=== PATIENT | female | born 1985 | race Caucasian/White ===

== ENCOUNTER 2016-12-01 18:41 | Emergency (ER) | payer MEDICARE, MEDICAID ==
[2016-12-01 19:13] VITALS: BP 130/86
--- NOTE | 2016-12-01 19:57 | EDM.PDOC ---
ED HPI GENERAL MEDICAL PROBLEM - General Chief Complaint: ENT Problem Stated Complaint: POSS EAR INFECTION Time Seen by Provider: 12/01/16 19:30 Source of Information: Reports: Patient, Family (Father), RN Notes Reviewed History Limitations: Reports: No Limitations - History of Present Illness INITIAL COMMENTS - FREE TEXT/NARRATIVE: The patient states that she had drainage from her left ear that began about 10 days ago, lasting for about 2 days. When that stopped, about 8 days ago, she developed left ear pain, decreased hearing, and possible tinnitus. She has not had a fever. No prior similar symptoms. The patient denies having a sore throat. No recent fever. The patient's PCP is Dr. Marie. Left Ear Pain Score (Numeric/FACES): 7 - Related Data Allergies Allergy/AdvReac Type Severity Reaction Status Date / Time acetaminophen Allergy Cannot Verified 12/01/16 19:03 [From Darvocet-N] Remember nitrofurantoin Allergy Cannot Verified 12/01/16 19:03 [From Macrobid] Remember nitrofurantoin Allergy Cannot Verified 12/01/16 19:03 macrocrystalline Remember [From Macrobid] propoxyphene napsylate Allergy Cannot Verified 12/01/16 19:03 [From Darvocet-N] Remember Sulfa (Sulfonamide Allergy Cannot Verified 12/01/16 19:03 Antibiotics) Remember Home Meds: Home Meds Labetalol [Normodyne] 200 mg PO TID 02/17/14 [History] Calcium Carbonate [Calcium] 600 mg PO DAILY 12/01/16 [History] LORazepam [Ativan] 1 mg PO BID 12/01/16 [History] Lisinopril 20 mg PO DAILY 12/01/16 [History] Sertraline [Zoloft] 100 mg PO DAILY 12/01/16 [History] Sevelamer Carbonate [Renvela] 1,600 mg PO TIDMEALS 12/01/16 [History] Sodium Bicarbonate 650 mg PO BID 12/01/16 [History] Past Medical History HEENT History: Reports: Impaired Vision Cardiovascular History: Reports: Hypertension Gastrointestinal History: Reports: GERD Genitourinary History: Reports: Dialysis, Renal Calculus, Renal Disease 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: Psychiatric History: Reports: Addiction, Anxiety, Depression - Past Surgical History HEENT Surgical History: Reports: Adenoidectomy, Myringotomy w Tube(s) (bilateral ), Tonsillectomy Cardiovascular Surgical History: Reports: Other (See Below) (LUE AVF) Female Surgical History: Reports: Section (x 1), Hysterectomy, Salpingo-Oophorectomy Musculoskeletal Surgical History: Reports: Other (See Below) (Right thumb trigger finger release) Social & Family History - Family History Cardiac: Reports: High Cholesterol, Hypertension : Reports: Dialysis Musculoskeletal: Reports: Fibromyalgia Neurological: Reports: Cerebral Aneurysms - Tobacco Use Smoking Status *Q: Current Every Day Smoker Years of Tobacco use: 15 Packs/Tins Daily: 0.5 Packs/Tins Daily Comment: Down from 1 ppd Second Hand Smoke Exposure: Yes - Caffeine Use Caffeine Use: Reports: Coffee, Soda - Alcohol Use Alcohol Use History: Yes Days Per Week of Alcohol Use: 0 Alcohol Use Frequency: Socially - Recreational Drug Use Recreational Drug Use: Yes Drug Use in Last 12 Months: Yes Recreational Drug Type: Reports: Marijuana/Hashish Recreational Drug Use Frequency: Daily - Living Situation & Occupation Living situation: Reports: Single, with Family (Father) Occupation: Unemployed ED ROS ENT - Review of Systems Review Of Systems: See Below Constitutional: Reports: No Symptoms HEENT: Reports: No Symptoms, Ear Discharge (as per the HPI), Ear Pain (as per the HPI) Respiratory: Reports: No Symptoms Cardiovascular: Reports: No Symptoms Endocrine: Reports: No Symptoms GI/Abdominal: Reports: No Symptoms : Reports: No Symptoms Musculoskeletal: Reports: No Symptoms Skin: Reports: No Symptoms Neurological: Reports: No Symptoms Psychiatric: Reports: No Symptoms Hematologic/Lymphatic: Reports: No Symptoms Immunologic: Reports: No Symptoms ED EXAM, ENT - Physical Exam Exam: See Below Exam Limited By: No Limitations General Appearance: Alert, WD/WN, No Apparent Distress Eye Exam: Bilateral Eye: Normal Inspection Ears: Normal External Exam, Normal Canal, Hearing Grossly Normal, Normal TMs, Auricular Tenderness (left), Mastoid Tenderness (left). No: Auricular Erythema , Auricular Ecchymosis, Mastoid Swelling, Canal Swelling, TM Bulging Nose: Normal Inspection, Normal Mucousa, No Blood Mouth/Throat: Normal Inspection, Normal Gums, Normal Lips, Normal Oropharynx, Normal Teeth Head: Atraumatic, Normocephalic Neck: Normal Inspection, Supple, Non-Tender, Full Range of Motion. No: Lymphadenopathy (L), Lymphadenopathy (R) Psychiatric: Normal Affect Skin: Warm, Dry, Intact, Normal Color, No Rash Course - Vital Signs Last Recorded V/S: Last Vital Signs Temp 36.6 C 12/01/16 19:09 Pulse 101 H 12/01/16 19:09 Resp 18 12/01/16 19:09 BP 130/86 12/01/16 19:09 Pulse Ox 97 12/01/16 19:09 - Re-Assessments/Exams Free Text/Narrative Re-Assessment/Exam: 12/01/16 19:51 The patient is complaining of left ear pain for the past 8 days, with drainage for 2 days prior to that, along with decreased hearing and possible tenderness. On examination, she stated that she had significant pain with manipulation of her auricle, however, I do not see any erythema or suggestion of an infection either to the external ear or to the left ear canal. Further, the patient denies having a sore throat, so this does not appear to be a referred pain. I don't see an indication for antibiotics. I will refer the patient to ENT. Departure - Departure Time of Disposition: 19:52 Disposition: Home, Self-Care 01 Condition: Good Clinical Impression: Left ear pain - Discharge Information Referrals: Aidan Marie MD [Primary Care Provider] - Vernon Kolb MD [Ordering Only Provider] - Forms: ED Department Discharge Additional Instructions: You were seen in the emergency room for left ear pain for the past 8 days, with drainage for 2 days prior to that. On examination, no infection or other abnormality was found. The cause of your left ear pain is not known. Follow-up with the ENT Dr. Vernon Kolb at the next available appointment. In the meantime, take [id number] Tylenol or ibuprofen as needed for discomfort. DO NOT instill any medicines, oils, or zeke in either ear unless specifically instructed to do so by Dr. Kolb.. If any other problems, please do not hesitate to return to the ER.
== END 2016-12-01 20:23 | disposition home or self-care (01) ==
LOC: JD.ED 18:41
DX: H92.02 Otalgia, left ear (principal); I10 Essential (primary) hypertension; K21.9 Gastro-esophageal reflux disease without esophagitis; F32.9 Major depressive disorder, single episode, unspecified; F17.210 Nicotine dependence, cigarettes, uncomplicated; Z87.442 Personal history of urinary calculi; Z88.2 Allergy status to sulfonamides; Z99.2 Dependence on renal dialysis; Z96.22 Myringotomy tube(s) status; Z98.890 Other specified postprocedural states; Z90.710 Acquired absence of both cervix and uterus; Z79.899 Other long term (current) drug therapy; Z88.6 Allergy status to analgesic agent; Z88.8 Allergy status to other drugs, medicaments and biological substances
CPT/HCPCS: 99282

== ENCOUNTER 2018-04-04 08:55 | Emergency (ER) | payer MEDICAID, MEDICARE ==
[2018-04-04 09:13] VITALS: BP 173/93
--- NOTE | 2018-04-04 10:26 | EDM.PDOC ---
ED HPI GENERAL MEDICAL PROBLEM - General Chief Complaint: Chest Pain Stated Complaint: CHEST PAIN Time Seen by Provider: 04/04/18 10:10 Source of Information: Reports: Patient, RN Notes Reviewed History Limitations: Reports: No Limitations - History of Present Illness INITIAL COMMENTS - FREE TEXT/NARRATIVE: The patient states that she developed left upper chest pain yesterday, and that it began radiating to her lower left posterior ribs around 01:00 this morning. She states that it feels like a muscle cramp or spasm. She feels more comfortable lying in the left decubitus position, worse lying in the right decubitus position or with breathing. She states that she had a cough yesterday , slightly productive of sputum. No recent fever. No associated dyspnea. No nausea. No prior similar symptoms. The patient states that she saw her PCP, Dr. Marie, this morning while she was receiving dialysis, and that he recommended that she go to the ED for evaluation. The patient states that she took some Tylenol around 06:45 this morning. Left Chest Pain Score (Numeric/FACES): 9 - Related Data Allergies Allergy/AdvReac Type Severity Reaction Status Date / Time acetaminophen Allergy Cannot Verified 04/04/18 09:00 [From Darvocet-N] Remember nitrofurantoin Allergy Cannot Verified 04/04/18 09:00 [From Macrobid] Remember nitrofurantoin Allergy Cannot Verified 04/04/18 09:00 macrocrystalline Remember [From Macrobid] propoxyphene napsylate Allergy Cannot Verified 04/04/18 09:00 [From Darvocet-N] Remember Sulfa (Sulfonamide Allergy Cannot Verified 04/04/18 09:00 Antibiotics) Remember Home Meds: Home Meds Labetalol [Normodyne] 200 mg PO TID 02/17/14 [History] Calcium Carbonate [Calcium] 600 mg PO DAILY 12/01/16 [History] LORazepam [Ativan] 1 mg PO ASDIRECTED 12/01/16 [History] Lisinopril 20 mg PO DAILY 12/01/16 [History] Sertraline [Zoloft] 100 mg PO DAILY 12/01/16 [History] Sevelamer Carbonate [Renvela] 1,600 mg PO TIDMEALS 12/01/16 [History] Past Medical History HEENT History: Reports: Impaired Vision Cardiovascular History: Reports: Hypertension Gastrointestinal History: Reports: GERD Genitourinary History: Reports: Dialysis (Q M, W, F), Renal Calculus, Renal Disease 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: Psychiatric History: Reports: Addiction (methamphetamine), Anxiety, Depression - Past Surgical History HEENT Surgical History: Reports: Adenoidectomy, Myringotomy w Tube(s) (bilateral ), Tonsillectomy Cardiovascular Surgical History: Reports: Vascular Surgery (Left upper extremity AV fistula) Female Surgical History: Reports: Section (x 1), Hysterectomy, Salpingo-Oophorectomy Musculoskeletal Surgical History: Reports: Other (See Below) (Right thumb trigger finger release) Social & Family History - Family History Cardiac: Reports: High Cholesterol, Hypertension : Reports: Dialysis Musculoskeletal: Reports: Fibromyalgia Neurological: Reports: Cerebral Aneurysms - Tobacco Use Smoking Status *Q: Current Every Day Smoker Years of Tobacco use: 18 Packs/Tins Daily: 0.5 Packs/Tins Daily Comment: Down from 1 ppd - Caffeine Use Caffeine Use: Reports: Coffee, Soda - Alcohol Use Alcohol Use History: No Date/Time of Last Drink Comment: Stopped drinking 2015 - Recreational Drug Use Recreational Drug Use: Yes Drug Use in Last 12 Months: Yes Recreational Drug Type: Reports: Marijuana/Hashish (smokes occasionally), Methamphetamine (last smoked February 2018), Other (see below) (opioids - last used in 2008) - Living Situation & Occupation Living situation: Reports: Single, with Family (Father) Occupation: Unemployed ED ROS GENERAL - Review of Systems Review Of Systems: ROS reveals no pertinent complaints other than HPI. ED EXAM, GENERAL - Physical Exam Exam: See Below Exam Limited By: No Limitations General Appearance: Alert, WD/WN, No Apparent Distress Eye Exam: Bilateral Eye: EOMI, Normal Inspection Ears: Normal External Exam, Hearing Grossly Normal Nose: Normal Inspection Throat/Mouth: Normal Inspection, Normal Lips, Normal Voice, No Airway Compromise Head: Atraumatic, Normocephalic Neck: Normal Inspection, Full Range of Motion Respiratory/Chest: No Respiratory Distress, Lungs Clear, Normal Breath Sounds, No Accessory Muscle Use, Chest Non-Tender (including the left upper chest) Cardiovascular: Normal Peripheral Pulses, Regular Rate, Rhythm, No Gallop, No JVD, No Murmur, No Rub Peripheral Pulses: 4+: Radial (L), Radial (R) GI/Abdominal: Normal Bowel Sounds, Soft, Non-Tender, No Organomegaly, No Distention, No Abnormal Bruit, No Mass (Female) Exam: Deferred Rectal (Female) Exam: Deferred Back Exam: Normal Inspection, Full Range of Motion, NT Extremities: Normal Inspection, Normal Range of Motion, No Pedal Edema, Normal Capillary Refill Neurological: Alert, Oriented, Normal Cognition, No Motor/Sensory Deficits Psychiatric: Normal Affect Skin Exam: Warm, Dry EKG INTERPRETATION EKG Date: 04/04/18 Time: 09:04 Rhythm: NSR Rate (Beats/Min): 90 [place]: Normal P-Wave: Enlarged (LAE) QRS: Normal ST-T: Normal QT: Prolonged (QTc 484 ms) Comparison: NA - No Prior EKG Course - Vital Signs Last Recorded V/S: Last Vital Signs Temp 36.3 C 04/04/18 09:12 Pulse 85 04/04/18 09:12 Resp 14 04/04/18 09:12 BP 173/93 H 04/04/18 09:12 Pulse Ox 99 04/04/18 09:12 - Orders/Labs/Meds Labs: Laboratory Tests 04/04/18 04/04/18 Range/Units 10:40 10:40 WBC 10.95 H (3.98-10.04) K/mm3 RBC 3.26 L (3.98-5.22) M/mm3 Hgb 10.6 L (11.2-15.7) gm/L Hct 33.2 L (34.1-44.9) % MCV 101.8 H (79.4-94.8) fl MCH 32.5 H (25.6-32.2) pg MCHC 31.9 L (32.2-35.5) g/dl RDW Std Deviation 51.4 H (36.4-46.3) fL Plt Count 210 (182-369) K/mm3 MPV 9.8 (9.4-12.3) fl Neutrophils % (Manual) 90 H (40-60) % Band Neutrophils % 0 (0-10) % Lymphocytes % (Manual) 7 L (20-40) % Atypical Lymphs % 0 % Monocytes % (Manual) 1 L (2-10) % Eosinophils % (Manual) 2 (0.7-5.8) % Basophils % (Manual) 0 L (0.1-1.2) Platelet Estimate Adequate RBC Morph Comment Normal Sodium 138 (136-145) mEq/L Potassium 4.3 (3.5-5.1) mEq/L Chloride 99 (98-107) mEq/L Carbon Dioxide 31 (21-32) mEq/L Anion Gap 12.3 (5-15) BUN 25 H (7-18) mg/dL Creatinine 6.0 H (0.55-1.02) mg/dL Est Cr Clr Drug Dosing 11.41 mL/min Estimated GFR (MDRD) 8 (>60) mL/min BUN/Creatinine Ratio 4.2 L (14-18) Glucose 92 (74-106) mg/dL Calcium 8.2 L (8.5-10.1) mg/dL Total Bilirubin 0.5 (0.2-1.0) mg/dL AST 13 L (15-37) U/L ALT 20 (14-59) U/L Alkaline Phosphatase 150 H (46-116) U/L Total Protein 7.2 (6.4-8.2) g/dl Albumin 3.6 (3.4-5.0) g/dl Globulin 3.6 gm/dL Albumin/Globulin Ratio 1.0 (1-2) - Re-Assessments/Exams Free Text/Narrative Re-Assessment/Exam: 04/04/18 10:[address] was [address] Marie regarding a different patient earlier, and he mentioned that he was sending this patient to the ED. He mentioned that he was concerned that she might have pneumonia. Based on my history and physical examination, I am less concerned about pneumonia, as she has normal breath sounds, is afebrile, and saturating 99% on room air, and more concerned about a possible PE. I have ordered a chest x-ray and some blood work, however, I cannot check a D-dimer, as the patient is on dialysis, so her D-dimer will be uninterpretable. I will wait to see what the chest x-ray shows before ordering a CT angiogram of the chest. 04/04/18 11:27 Two-view chest x-ray is read by Dr. Padilla as: 1. Findings which are felt compatible with mild bronchitis. Other incidental findings. 04/04/18 11:37 Test results discussed with the patient. While Dr. Padilla saw some chest radiograph findings consistent with bronchitis, they are subtle, and, clinically , the patient does not have bronchitis. While she has been coughing, her cough is quite infrequent, indeed, she did not cough once during any of my interactions with her. I suspect that the patient may have a viral URI with an occasional cough, and that with that cough, she has an intercostal muscle spasm that developed in her posterior left ribs. I explained, however, that I cannot entirely rule out PE, therefore, despite her renal failure, I had to advise for a CT angiogram of the chest to evaluate for a PE. Of note, the patient's renal failure is felt to be permanent, without chance of recovery, with the eventual hope of a kidney transplant. Iodinated contrast is therefore not contraindicated. Nevertheless, the patient felt that the likelihood of her symptoms being due to a PE were very small, and she declined the CT scan. She stated that she would prefer to go home. Departure - Departure Time of Disposition: 11:40 Disposition: Home, Self-Care 01 Condition: Good Clinical Impression: Viral URI with cough, Musculoskeletal chest pain - Discharge Information *PRESCRIPTION DRUG MONITORING PROGRAM REVIEWED*: Not Applicable *COPY OF PRESCRIPTION DRUG MONITORING REPORT IN PATIENT DEAN: Not Applicable Instructions: Upper Respiratory Infection, Adult, [id number], Chest Wall Pain Referrals: Aidan Marie MD [Primary Care Provider] - Forms: ED Department Discharge Additional Instructions: You were seen in the emergency room for left-sided chest pain and left back rib pain, associated with a cough. Workup in the ER included blood work, 2 sets of blood cultures, and chest x-ray. Your chest x-ray had some findings consistent with bronchitis, however, clinically, you do not have bronchitis. You do not have pneumonia. You do not have fluid in your left chest, and he did not have a collapsed lung. Clinically , you are most likely suffering from a viral URI with cough, also known as a common cold. As explained, there is a possibility that your symptoms could be due to a blood clot in your lungs. A CT scan of your chest to evaluate for a blood clot was offered, but declined. We recommend that you continue to take your usual medicines as prescribed. You may continue to go to hemodialysis every Wednesday, Wednesday, and Glenn. If any other problems, please do not hesitate to return to the ER.
--- NOTE | 2018-04-04 11:22 | CR ---
Chest: Two views of the chest were obtained. Comparison: Previous chest x-ray of 11/04/13. Heart size and mediastinum are within normal limits. Lung markings are mildly increased which is felt compatible with mild bronchitis. No pneumonia is identified. Scoliosis is noted within the spine. Impression: 1. Findings which are felt compatible with mild bronchitis. Other incidental findings. Diagnostic code #3
== END 2018-04-04 12:00 | disposition home or self-care (01) ==
LOC: JD.ED 08:55
DX: J06.9 Acute upper respiratory infection, unspecified (principal); R07.89 Other chest pain; I10 Essential (primary) hypertension; F17.210 Nicotine dependence, cigarettes, uncomplicated; Z88.6 Allergy status to analgesic agent; Z88.1 Allergy status to other antibiotic agents; Z79.899 Other long term (current) drug therapy
CPT/HCPCS: 36415; 71046; 71046-26; 80053; 85007; 85027; 87040; 99285

== ENCOUNTER 2018-09-05 01:24 | Emergency (ER) | payer MEDICARE, OTHER ==
[2018-09-05] MEDS ORDERED: Furosemide 40 MG/4 ML VIAL IVPUSH ONE (01:30)
[2018-09-05] MEDS ORDERED: Furosemide 40 MG/4 ML VIAL ONE (01:31)
[2018-09-05] MEDS ORDERED: LORazepam 2 MG/ML SDV IVPUSH STA ×2 (01:32→02:49)
[2018-09-05] MEDS ORDERED: Furosemide 20 MG/2 ML VIAL ONE (01:32)
--- NOTE | 2018-09-05 01:43 | EDM.PDOC ---
ED HPI GENERAL MEDICAL PROBLEM - General Chief Complaint: Respiratory Problem Stated Complaint: [facility] Time Seen by Provider: 09/05/18 01:26 Source of Information: Reports: Patient History Limitations: Reports: Physical Impairment (Too tachypneic to provide a history) - History of Present Illness INITIAL COMMENTS - FREE TEXT/NARRATIVE: The patient is brought to the ED by EMS with report of shortness of breath, however, it is unclear at this time how long this has been going on. Apparently the patient's family called the paramedics. The patient has end-stage renal disease, ordinarily on hemodialysis every Wednesday, Wednesday, and Wednesday, however , her last hemodialysis, for reasons unclear, was this past , 2018. The patient states that she did not take her usual blood pressure medications yesterday (09/04/2018), and that she smoked some marijuana. She presents in some respiratory distress, stating that she can't breathe. She is tachycardic and tachypneic, and on examination, she is cool and diaphoretic. She has a known history of methamphetamine abuse, although states that she has not used any drugs, other than marijuana, recently. The patient's PCP is Dr. Aidan Marie. 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 Marie orders her dialysis. - Related Data Allergies Allergy/AdvReac Type Severity Reaction Status Date / Time acetaminophen Allergy Cannot Verified 04/04/18 09:00 [From Darvocet-N] Remember nitrofurantoin Allergy Cannot Verified 04/04/18 09:00 [From Macrobid] Remember nitrofurantoin Allergy Cannot Verified 04/04/18 09:00 macrocrystalline Remember [From Macrobid] propoxyphene napsylate Allergy Cannot Verified 04/04/18 09:00 [From Darvocet-N] Remember Sulfa (Sulfonamide Allergy Cannot Verified 04/04/18 09:00 Antibiotics) Remember Home Meds: Home Meds Labetalol [Normodyne] 200 mg PO TID 02/17/14 [History] Calcium Carbonate [Calcium] 600 mg PO DAILY 12/01/16 [History] LORazepam [Ativan] 1 mg PO ASDIRECTED 12/01/16 [History] Lisinopril 20 mg PO DAILY 12/01/16 [History] Sertraline [Zoloft] 100 mg PO DAILY 12/01/16 [History] Sevelamer Carbonate [Renvela] 1,600 mg PO TIDMEALS 12/01/16 [History] Past Medical History HEENT History: Reports: Impaired Vision Cardiovascular History: Reports: Hypertension Gastrointestinal History: Reports: GERD Genitourinary History: Reports: Dialysis (Q M, W, F), Renal Calculus 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: Psychiatric History: Reports: Addiction (methamphetamine), Anxiety, Depression - Past Surgical History HEENT Surgical History: Reports: Adenoidectomy, Myringotomy w Tube(s) (bilateral ), Tonsillectomy Cardiovascular Surgical History: Reports: Vascular Surgery (left upper extremity AV fistula) Female Surgical History: Reports: Section (x 1), Hysterectomy ( complete), Salpingo-Oophorectomy (bilateral) Musculoskeletal Surgical History: Reports: Other (See Below) (Right thumb trigger finger release) Social & Family History - Family History Cardiac: Reports: High Cholesterol, Hypertension : Reports: Dialysis Musculoskeletal: Reports: Fibromyalgia Neurological: Reports: Cerebral Aneurysms - Tobacco Use Smoking Status *Q: Current Every Day Smoker Years of Tobacco use: 18 Packs/Tins Daily: 0.5 Packs/Tins Daily Comment: Down from 1 ppd - Caffeine Use Caffeine Use: Reports: Coffee, Soda - Alcohol Use Alcohol Use History: No - Recreational Drug Use Recreational Drug Use: Yes Drug Use in Last 12 Months: Yes Recreational Drug Type: Reports: Marijuana/Hashish (smokes 3x/week), Methamphetamine (last smoked early August 2017) - Living Situation & Occupation Living situation: Reports: Single, with Family (Father) Occupation: Unemployed ED ROS GENERAL - Review of Systems Review Of Systems: ROS reveals no pertinent complaints other than HPI. ED EXAM, GENERAL - Physical Exam Exam: See Below Exam Limited By: Physical Impairment (respiratory distress) General Appearance: Alert, WD/WN, Anxious Eye Exam: Bilateral Eye: EOMI, Normal Inspection Ears: Normal External Exam, Hearing Grossly Normal Nose: Normal Inspection Throat/Mouth: Normal Inspection, Normal Lips, Normal Voice, No Airway Compromise Head: Atraumatic, Normocephalic Neck: Normal Inspection, Full Range of Motion Respiratory/Chest: No Accessory Muscle Use, Respiratory Distress (tachypneic), Crackles (throughout lungfields). No: Wheezing, Accessory Muscle Use, Retractions, Prolonged Expiration Cardiovascular: Normal Peripheral Pulses, No Edema, No Gallop, No JVD, No Murmur , No Rub, Tachycardia (regular), Other (Excellent LUE AVF thrill) Peripheral Pulses: 4+: Radial (L), Radial (R) GI/Abdominal: Normal Bowel Sounds, Soft, Non-Tender, No Organomegaly, No Distention, No Abnormal Bruit, No Mass (Female) Exam: Deferred Rectal (Female) Exam: Deferred Back Exam: Normal Inspection, Full Range of Motion, NT Extremities: Normal Inspection, Normal Range of Motion, No Pedal Edema, Normal Capillary Refill Neurological: Alert, Oriented, Normal Cognition, No Motor/Sensory Deficits Psychiatric: Anxious Skin Exam: Intact, Normal Color, No Rash, Cool, Diaphoretic EKG INTERPRETATION EKG Date: 09/05/18 Time: 01:28 Rhythm: Other (Sinus tachycardia) Rate (Beats/Min): 145 Filer: Normal P-Wave: Present QRS: Normal ST-T: Normal QT: Prolonged (QTc 595 ms) Comparison: Change From Previous EKG (QTc was 484 ms on 04/04/2018) Course - Vital Signs Last Recorded V/S: Last Vital Signs Temp 36.1 C 09/05/18 03:50 Pulse 135 H 09/05/18 03:50 Resp 24 H 09/05/18 03:50 BP 259/120 H 09/05/18 03:50 Pulse Ox 98 09/05/18 03:50 - Orders/Labs/Meds Orders: Active Orders 24 hr Category Date Time Status BIPAP Adult [RT BiPAP/CPAP] [RC] ASDIRECTED Care 09/05/18 01:36 Active EKG Documentation Completion [RC] STAT Care 09/05/18 01:29 Active Ang Chest [CT] Stat Exams 09/05/18 03:05 Taken Chest 1V Frontal [CR] Stat Exams 09/05/18 01:29 Taken CULTURE BLOOD [BC] Stat Lab 09/05/18 01:50 Received Azithromycin [Zithromax] 500 mg Med 09/05/18 03:57 Active Sodium Chloride 0.9% [Normal Saline] 250 ml IV ONETIME cefTRIAXone [Rocephin] 1 gm Med 09/05/18 03:57 Active Sodium Chloride 0.9% [Normal Saline] 100 ml IV ONETIME Blood Culture x2 Reflex Set [OM.PC] Stat Oth 09/05/18 01:29 Ordered Medication Orders Azithromycin 500 mg/ Sodium (Chloride) 250 mls @ 250 mls/hr IV ONETIME ONE Stop: 09/05/18 04:56 Ceftriaxone Sodium 1 gm/ (Sodium Chloride) 100 mls @ 200 mls/hr IV ONETIME ONE Stop: 09/05/18 04:26 Last Admin: 09/05/18 04:04 Dose: 200 mls/hr Labs: Laboratory Tests 09/05/18 09/05/18 09/05/18 Range/Units 01:31 01:31 01:31 WBC 18.88 H (3.98-10.04) K/mm3 RBC 2.70 L (3.98-5.22) M/mm3 Hgb 8.8 L D (11.2-15.7) gm/L Hct 27.5 L (34.1-44.9) % MCV 101.9 H (79.4-94.8) fl MCH 32.6 H (25.6-32.2) pg MCHC 32.0 L (32.2-35.5) g/dl RDW Std Deviation 45.3 (36.4-46.3) fL Plt Count 375 H D (182-369) K/mm3 MPV 9.8 (9.4-12.3) fl Neutrophils % (Manual) 52 (40-60) % Band Neutrophils % 0 (0-10) % Lymphocytes % (Manual) 34 (20-40) % Atypical Lymphs % 0 % Monocytes % (Manual) 9 (2-10) % Eosinophils % (Manual) 3 (0.7-5.8) % Basophils % (Manual) 2 H (0.1-1.2) Hypersegmented Neuts Few Toxic Granulation 1+ slight Platelet Estimate Increased Plt Morphology Comment Normal Hypochromasia 1+ slight Macrocytosis 2+ moderate Ovalocytes 2+ moderate RBC Morph Comment Not Reportable Puncture Site ABG pH (7.35-7.45) ABG pCO2 (35.0-45.0) mmHg ABG pO2 (80.0-100.0) mmHg ABG HCO3 (22.0-26.0) meq/L ABG O2 Saturation (96.0-97.0) % ABG Base Excess (-2-2.0) A-a Gradient mmHg O2 Delivery Device Oxygen Flow Rate FiO2 (21.00-100.00) % Sodium 137 (136-145) mEq/L Potassium 5.1 (3.5-5.1) mEq/L Chloride 100 (98-107) mEq/L Carbon Dioxide 20 L D (21-32) mEq/L Anion Gap 22.1 H (5-15) BUN 47 H (7-18) mg/dL Creatinine 11.0 H D (0.55-1.02) mg/dL Est Cr Clr Drug Dosing 6.22 mL/min Estimated GFR (MDRD) 4 (>60) mL/min BUN/Creatinine Ratio 4.3 L (14-18) Glucose 163 H (74-106) mg/dL Calcium 7.1 L (8.5-10.1) mg/dL Total Bilirubin 0.5 (0.2-1.0) mg/dL AST 100 H (15-37) U/L ALT 89 H (14-59) U/L Alkaline Phosphatase 188 H (46-116) U/L Troponin I 0.036 (0.00-0.056) ng/mL Total Protein 6.8 (6.4-8.2) g/dl Albumin 3.6 (3.4-5.0) g/dl Globulin 3.2 gm/dL Albumin/Globulin Ratio 1.1 (1-2) Urine Color (Yellow) Urine Appearance (Clear) Urine pH (5.0-8.0) Ur Specific [place] (1.005-1.030) Urine Protein (Negative) Urine Glucose (UA) (Negative) Urine Ketones (Negative) Urine Occult Blood (Negative) Urine Nitrite (Negative) Urine Bilirubin (Negative) Urine Urobilinogen (0.2-1.0) Ur Leukocyte Esterase (Negative) Urine RBC (0-5) /hpf Urine WBC (0-5) /hpf Ur Squamous Epith Cells (0-5) /hpf Ur Transition Epith Cell (0-5) Ur Renal Epithelial Cell (0-5) /hpf Amorphous Sediment (NOT SEEN) /hpf Urine Bacteria (FEW) /hpf Hyaline Casts (0-5) /lpf Urine Mucus (FEW) /hpf Salicylates 1.8 L (2.8-20) mg/dL Urine Opiates Screen (UKJUYD=021) Ur Buprenorphine Scrn (CUTOFF=10) Ur Oxycodone Screen (EZD9UH=514) Urine Methadone Screen (KAGJXR=300) Ur Propoxyphene Screen (WHLWNT=567) Acetaminophen 0 L (10-30) ug/mL Ur Barbiturates Screen (YUDCIT=987) Ur Tricyclics Screen (QGPWEH=917) Ur Phencyclidine Scrn (CUTOFF=25) Ur Amphetamine Screen (JEUNRD=785) U Methamphetamines Scrn (JMBBUM=000) U Benzodiazepines Scrn (UDCJBX=513) U Cocaine Metab Screen (VJUCLT=828) U Marijuana (THC) Screen (CUTOFF=50) Ethyl Alcohol 0.00 (0.00) gm% 09/05/18 09/05/18 09/05/18 Range/Units 01:35 01:55 01:55 WBC (3.98-10.04) K/mm3 RBC (3.98-5.22) M/mm3 Hgb (11.2-15.7) gm/L Hct (34.1-44.9) % MCV (79.4-94.8) fl MCH (25.6-32.2) pg MCHC (32.2-35.5) g/dl RDW Std Deviation (36.4-46.3) fL Plt Count (182-369) K/mm3 MPV (9.4-12.3) fl Neutrophils % (Manual) (40-60) % Band Neutrophils % (0-10) % Lymphocytes % (Manual) (20-40) % Atypical Lymphs % % Monocytes % (Manual) (2-10) % Eosinophils % (Manual) (0.7-5.8) % Basophils % (Manual) (0.1-1.2) Hypersegmented Neuts Toxic Granulation Platelet Estimate Plt Morphology Comment Hypochromasia Macrocytosis Ovalocytes RBC Morph Comment Puncture Site Rt radial ABG pH 7.18 L* (7.35-7.45) ABG pCO2 52.4 H (35.0-45.0) mmHg ABG pO2 63.0 L (80.0-100.0) mmHg ABG HCO3 18.9 L (22.0-26.0) meq/L ABG O2 Saturation 81.0 L (96.0-97.0) % ABG Base Excess -8.7 L (-2-2.0) A-a Gradient 511 mmHg O2 Delivery Device Nrb mask Oxygen Flow Rate 15.0 FiO2 100.00 (21.00-100.00) % Sodium (136-145) mEq/L Potassium (3.5-5.1) mEq/L Chloride (98-107) mEq/L Carbon Dioxide (21-32) mEq/L Anion Gap (5-15) BUN (7-18) mg/dL Creatinine (0.55-1.02) mg/dL Est Cr Clr Drug Dosing mL/min Estimated GFR (MDRD) (>60) mL/min BUN/Creatinine Ratio (14-18) Glucose (74-106) mg/dL Calcium (8.5-10.1) mg/dL Total Bilirubin (0.2-1.0) mg/dL AST (15-37) U/L ALT (14-59) U/L Alkaline Phosphatase (46-116) U/L Troponin I (0.00-0.056) ng/mL Total Protein (6.4-8.2) g/dl Albumin (3.4-5.0) g/dl Globulin gm/dL Albumin/Globulin Ratio (1-2) Urine Color Light yellow (Yellow) Urine Appearance Slt cloudy H (Clear) Urine pH 8.5 H (5.0-8.0) Ur Specific [place] 1.020 (1.005-1.030) Urine Protein 3+ H (Negative) Urine Glucose (UA) 1+ H (Negative) Urine Ketones Negative (Negative) Urine Occult Blood 2+ H (Negative) Urine Nitrite Negative (Negative) Urine Bilirubin Negative (Negative) Urine Urobilinogen 0.2 (0.2-1.0) Ur Leukocyte Esterase Negative (Negative) Urine RBC 5-10 H (0-5) /hpf Urine WBC 0-5 (0-5) /hpf Ur Squamous Epith Cells 0-5 (0-5) /hpf Ur Transition Epith Cell 5-10 H (0-5) Ur Renal Epithelial Cell 5-10 H (0-5) /hpf Amorphous Sediment Few H (NOT SEEN) /hpf Urine Bacteria Few (FEW) /hpf Hyaline Casts 0-5 (0-5) /lpf Urine Mucus Moderate H (FEW) /hpf Salicylates (2.8-20) mg/dL Urine Opiates Screen Negative (DAVFVL=365) Ur Buprenorphine Scrn Negative (CUTOFF=10) Ur Oxycodone Screen Negative (GGY8OM=631) Urine Methadone Screen Negative (OCHMYP=448) Ur Propoxyphene Screen Negative (XBIMIH=179) Acetaminophen (10-30) ug/mL Ur Barbiturates Screen Negative (CYVHWR=419) Ur Tricyclics Screen Negative (SMQNDW=006) Ur Phencyclidine Scrn Negative (CUTOFF=25) Ur Amphetamine Screen Negative (ZDSOBA=465) U Methamphetamines Scrn Negative (EAUIRC=129) U Benzodiazepines Scrn Negative (VBHWPM=116) U Cocaine Metab Screen Negative (AWHVXZ=108) U Marijuana (THC) Screen Presumptive positive H (CUTOFF=50) Ethyl Alcohol (0.00) gm% Meds: Medications Generic Name Dose Route Start Last Admin Trade Name Freq PRN Reason Stop Dose Admin Azithromycin 500 mg/ Sodium 250 mls @ 250 mls/hr 09/05/18 03:57 Chloride IV 09/05/18 04:56 ONETIME ONE Ceftriaxone Sodium 1 gm/ 100 mls @ 200 mls/hr 09/05/18 03:57 09/05/18 04:04 Sodium Chloride IV 09/05/18 04:26 200 mls/hr ONETIME ONE Administration Discontinued Medications Generic Name Dose Route Start Last Admin Trade Name Freq PRN Reason Stop Dose Admin Furosemide 40 mg 09/05/18 01:30 09/05/18 01:55 Lasix IVPUSH 09/05/18 01:31 40 mg NOW ONE Administration Furosemide Confirm 09/05/18 01:31 09/05/18 02:53 Lasix Administered 09/05/18 01:32 Not Given Dose 40 mg .ROUTE .STK-MED ONE Furosemide Confirm 09/05/18 01:32 09/05/18 02:53 Lasix Administered 09/05/18 01:33 Not Given Dose 40 mg .ROUTE .STK-MED ONE Iopamidol 100 ml 09/05/18 03:34 09/05/18 03:36 Isovue-370 (76%) IVPUSH 09/05/18 03:35 100 ml ONETIME ONE Administration Labetalol HCl 200 mg 09/05/18 02:06 09/05/18 02:23 Normodyne PO 09/05/18 02:07 200 mg ONETIME STA Administration Lisinopril 20 mg 09/05/18 02:06 09/05/18 02:23 Prinivil PO 09/05/18 02:07 20 mg ONETIME STA Administration Lorazepam 1 mg 09/05/18 01:32 09/05/18 02:26 Ativan IVPUSH 09/05/18 01:33 1 mg ONETIME STA Administration Lorazepam 1 mg 09/05/18 02:49 09/05/18 02:55 Ativan IVPUSH 09/05/18 02:50 1 mg ONETIME STA Administration Lorazepam 1 mg 09/05/18 02:51 09/05/18 03:01 Ativan IVPUSH 09/05/18 02:52 Not Given ONETIME ONE - Re-Assessments/Exams Free Text/Narrative Re-Assessment/Exam: 09/05/18 01:40 The patient's SpO2 is reading 89%, although there is virtually no waveform correlation, therefore it is likely higher, nevertheless, the patient is in some respiratory distress, quite tachypneic, and unable to provide much history. Given her history of no dialysis since , 09/01/2018, there is a good chance that she is fluid overloaded. I have ordered 40 mg of IV Lasix and an ABG, but I don't think we should wait for the results before starting the patient on BiPAP. The patient is tachycardic at 140 bpm, and her ECG indicates that it is a sinus tachycardia. The patient has a history of methamphetamine abuse, therefore, in addition to the rest of her workup, I have ordered a urine drug screen. 09/05/18 01:52 Portable chest radiograph reviewed. The cardiac silhouette is at the upper limits of normal. There is significant bilateral pulmonary vascular congestion, consistent with noncardiogenic pulmonary edema. No pleural effusions seen on this AP view. No focal infiltrate. No pneumothorax. Formal read per the Radiologist pending. 09/05/18 02:03 The patient's breathing appears to be improving since BiPAP was placed. She states that her shortness of breath began about 1.5 hours ago, but that she has had shortness of breath on and off for the past week. She states that she had hemodialysis on 08/29/2018, then skipped her 08/31/2018 dialysis, but then had dialysis on , 09/01/2018. No dialysis since. She states that she has been compliant with her fluid and salt intake. She tells me that she last smoked methamphetamine about 2-3 weeks ago, and that she tends to smoke marijuana on her dialysis days. 09/05/18 02:07 Despite improvement in her respiratory status, the patient is still considerably hypertensive, therefore I have ordered her usual home antihypertensives, which she apparently skipped today, including lisinopril 20 mg po and labetalol 200 mg po. 09/05/18 02:36 I had ordered Ativan 1 mg IVP, however, after I ordered BiPAP, I asked the nurse to not give the Ativan unless the patient needed it despite BiPAP. I am notified that the patient is still anxious, therefore Ativan has been given. I note that Ativan is one of the patient's usual home medications. Notified by Melva LINK that, despite numerous attempts, a lactic acid level has not been able to be obtained, and that lab was only able to collect a very small amount of blood from the blood cultures. My suspicion for pneumonia/sepsis is very low. 09/05/18 02:44 On BiPAP 12/16 with a FiO2 of .64, the patient's SpO2 is about 93%, with good waveform correlation, and her tidal volume is around 585 mL, which is excellent. She still has some crackles on auscultation, and she is still tachypneic and tachycardic at 137 bpm, indicating continued pulmonary edema. I have therefore asked the respiratory therapist to increase the IPAP to 14, and the EPAP to 8, which should keep the patient's tidal volume about the same, but improve her pulmonary edema and oxygenation. 09/05/18 02:49 The patient requested additional Ativan. She would like to be "a little bit knocked out". I, on the other hand, do not want her to be a little bit knocked out, as decreased sensorium is a contraindication for BiPAP, and she needs to be on BiPAP. I have ordered one additional milligram of Ativan IV, but I do not intend to give any more. 09/05/18 02:57 The patient's ABG, obtained while the patient was still on a partial rebreather mask, reflects an acute respiratory acidosis and metabolic acidosis, with hypoxemia. Her CBC is remarkable for a WBC count elevated at 18.88, but with 0% bandemia. Her H/H are depressed at 8.8/27.5. Her platelets are slightly elevated at 375, 000. Her CMP is remarkable for a bicarbonate depressed at 20, with an anion gap elevated at 22.1. Her BUN/Cr are elevated at 47/11.1. her blood glucose is elevated at 163. Her total calcium is mildly depressed at 7.1. The remainder of her CMP is unremarkable. Her troponin is not elevated. Her acetaminophen level is 0. Her salicylate level is not elevated. Her alcohol level is 0. Her urine drug screen is positive for marijuana, only. 09/05/18 03:05 The sudden onset of the patient's dyspnea, continued tachycardia, and metabolic acidosis concern me for a pulmonary embolus. Her tachycardia can be explained by her failure to take her usual labetalol, and her metabolic acidosis can be explained by her renal failure, however, none of these would explain the sudden onset of her symptoms. Since the patient is already on hemodialysis, and will likely be able to be dialyzed later today, in [place], concern for her kidneys should not outweigh the need to rule out a medical emergency. I have therefore ordered a CT angiogram of the chest to evaluate for a PE. Once the patient has returned from CT scan, she will need to be transferred to [place] in order to receive dialysis. The patient indicated that she prefers [facility]. 09/05/18 03:26 The portable chest x-ray image was pushed to [facility]. [facility] was contacted at 03:11. Case then discussed with Naz at [facility] at 03:16. Case then discussed with Dr. Yuen, Emergency Physician at [facility] , at 03:21. He recommended direct admission, although accepted transfer to the ED if the Hospitalist declined. Notified by Naz that the Hospitalist Dr. Mcknight declined admission, preferring that the patient be sent to the ED. Dr. Yuen will therefore be the accepting physician. The patient is currently in CT scan. We will arrange for ground transportation. 09/05/18 03:37 The patient's BP is still elevated at 259/120, despite receiving the lisinopril and labetalol. This may be because of fluid overload; tensely filled arteries may not be able to relax until fluid is removed. Her BP should improve after dialysis. 09/05/18 03:55 CT angiogram of the chest is read by [facility] as: 1. No evidence of pulmonary emboli. 2. Diffuse patchy lung consolidations most likely a bronchopneumonia. ARDS can have a similar appearance. 3. Small to moderate-sized pleural effusions 4. Mild pulmonary edema Clinically, I do not suspect pneumonia, as the patient reports no recent history of fever or cough, however, based on the CT results, I will start the patient on Rocephin and azithromycin. Departure - Departure Time of Disposition: 03:26 Disposition: DC/Tfer to Acute Hospital 02 Condition: Fair Clinical Impression: Acute noncardiogenic pulmonary edema, Leukocytosis, Acute respiratory acidosis , End stage renal disease on dialysis, QT prolongation, Marijuana use, Methamphetamine abuse, Uncontrolled hypertension, High anion gap metabolic acidosis - Discharge Information *PRESCRIPTION DRUG MONITORING PROGRAM REVIEWED*: Not Applicable *COPY OF PRESCRIPTION DRUG MONITORING REPORT IN PATIENT DEAN: Not Applicable Referrals: Aidan Marie MD [Physician] - - My Orders Last 24 Hours: My Active Orders 09/05/18 01:29 EKG Documentation Completion [RC] STAT Chest 1V Frontal [CR] Stat Blood Culture x2 Reflex Set [OM.PC] Stat 09/05/18 01:36 BIPAP Adult [RT BiPAP/CPAP] [RC] ASDIRECTED 09/05/18 01:50 CULTURE BLOOD [BC] Stat 09/05/18 03:05 Ang Chest [CT] Stat 09/05/18 03:57 Azithromycin [Zithromax] 500 mg Sodium Chloride 0.9% [Normal Saline] 250 ml IV ONETIME cefTRIAXone [Rocephin] 1 gm Sodium Chloride 0.9% [Normal Saline] 100 ml IV ONETIME - Assessment/Plan Last 24 Hours: My Active Orders 09/05/18 01:29 EKG Documentation Completion [RC] STAT Chest 1V Frontal [CR] Stat Blood Culture x2 Reflex Set [OM.PC] Stat 09/05/18 01:36 BIPAP Adult [RT BiPAP/CPAP] [RC] ASDIRECTED 09/05/18 01:50 CULTURE BLOOD [BC] Stat 09/05/18 03:05 Ang Chest [CT] Stat 09/05/18 03:57 Azithromycin [Zithromax] 500 mg Sodium Chloride 0.9% [Normal Saline] 250 ml IV ONETIME cefTRIAXone [Rocephin] 1 gm Sodium Chloride 0.9% [Normal Saline] 100 ml IV ONETIME
[2018-09-05] MEDS ORDERED: Labetalol 100 MG Tab PO STA (02:06)
[2018-09-05] MEDS ORDERED: Lisinopril 20 MG Tab PO STA (02:06)
[2018-09-05] MEDS ORDERED: LORazepam 2 MG/ML SDV IVPUSH ONE (02:51)
[2018-09-05] MEDS ORDERED: Iopamidol 755 Mg/ML 100 ML Bottle IVPUSH ONE (03:34)
[2018-09-05 03:52] VITALS: BP 259/120
[2018-09-05] MEDS ORDERED: Azithromycin 500 MG in Sodium Chloride 0.9% 250 ML IV ONE (03:57)
[2018-09-05] MEDS ORDERED: cefTRIAXone 1 GM in Sodium Chloride 0.9% 100 ML IV ONE (03:57)
--- NOTE | 2018-09-05 11:57 | CT ---
CT chest Technique: Multiple axial sections through the chest were obtained. Intravenous contrast was utilized. Study performed as a pulmonary angiogram protocol. Findings: Small bilateral pleural effusions are noted. Heart is enlarged. Patchy areas of consolidative densities are noted on both sides of the chest. Pulmonary arteries are well-opacified. No filling defects are seen to indicate pulmonary embolism. Mild coronary artery calcification is present. Mediastinum and hilar regions show no adenopathy or mass. Small portion of the visualized upper abdominal structures are within normal limits. Impression: 1. Small pleural effusions as well as mild cardiomegaly. Diffuse alveolar densities seen on both sides of the chest. Differential by CT exam includes CHF with pulmonary edema or multifocal pneumonia if patient has infectious symptoms. 2. No findings of pulmonary embolism. Diagnostic code #3 I agree with preliminary report from [facility], finalized on 09/05/18, 4:53 AM Central Time
--- NOTE | 2018-09-05 11:58 | CR ---
Chest: Portable view of the chest was obtained. Comparison: Prior chest x-ray of 04/04/18. Diffuse pulmonary vascular congestion seen with mild interstitial edema and early alveolar edema. Heart is enlarged. Bone window settings showed nothing acute. Impression: 1. Findings suspicious for CHF with early pulmonary edema. Diagnostic code #3
== END 2018-09-05 04:15 ==
LOC: JD.ED 01:24
DX: J81.0 Acute pulmonary edema (principal); D72.829 Elevated white blood cell count, unspecified; E87.2 Acidosis; I12.0 Hypertensive chronic kidney disease with stage 5 chronic kidney disease or end stage renal disease; N18.6 End stage renal disease; Z99.2 Dependence on renal dialysis; F12.10 Cannabis abuse, uncomplicated; K21.9 Gastro-esophageal reflux disease without esophagitis; F41.9 Anxiety disorder, unspecified; F32.9 Major depressive disorder, single episode, unspecified; I45.81 Long QT syndrome; Z79.899 Other long term (current) drug therapy; Z88.2 Allergy status to sulfonamides; Z88.8 Allergy status to other drugs, medicaments and biological substances
CPT/HCPCS: 36415; 36600; 71045; 71275; 80053; 80306; 81001; 82803; 84484; 85007; 85027; 87040; 93005; 94660; 96374; 96375; 99285; A9270; G0480; J0456; J0696; J1940; J2060; J7030; J7050; Q9967

== ENCOUNTER 2019-03-22 10:59 | Emergency (ER) | payer MEDICARE, MEDICAID ==
[2019-03-22] MEDS ORDERED: Albuterol/Ipratropium 3.0-0.5 MG/3 ML Neb Soln NEB ONE (11:50)
--- NOTE | 2019-03-22 11:51 | EDM.PDOC ---
ED HPI GENERAL MEDICAL PROBLEM - General Chief Complaint: Respiratory Problem Stated Complaint: SOB Time Seen by Provider: 03/22/19 11:30 Source of Information: Reports: Patient History Limitations: Reports: No Limitations - History of Present Illness INITIAL COMMENTS - FREE TEXT/NARRATIVE: 33-year-old female whom is a hemodialysis patient presents to the ED at the request of her primary care physician Dr. Marie. She states that she has had nausea and vomiting and diarrhea all day yesterday. At the time of presentation to the dialysis unit this morning she was below her dry weight. Today she has still had some mild loose stools but is no longer vomiting. She did complete her 4 hours of dialysis this morning and then came up to the ED. She did have Zofran 4 mg sublingually until this morning in the renal dialysis unit. Patient is on dialysis due to intravenous drug abuse which is caused possible endocarditis and valvular heart disease as well as suspect severe hypertension and renal insufficiency going on to requirement for dialysis.She still makes about a cup of urine a day. She did void this morning. She has had not had any significant problems with urinary tract infections. She started to have a paroxysmal minimally productive cough on Wednesday, March 20. Of note the patient still smokes between 5 and 10 cigarettes daily. She has known severe COPD. she is currently on 1/2 L of oxygen in the ED. This was placed in renal dialysis unit. She does not require oxygen at home. She did have a flu shot this year. At this time has no nausea. Is requesting ice chips which will be granted. Denies any antibiotic usage in the last 3 weeks. Onset: Sudden, Other (Development of nausea vomiting and diarrhea yesterday morning. Develop an of increased paroxysmal cough on WednesdayMarch 20.) Duration: Day(s):, Improving (No further vomiting today ,still having some diarrhea.) Location: Reports: Chest (Nausea vomiting and diarrhea. Ex is no increased productive cough for her in spite of being a smoker. Has known COPD.), Abdomen Quality: Reports: Other Severity: Moderate (Nausea vomiting diarrhea starting yesterday morning.) Improves with: Reports: Other (Better since receiving Zofran sublingually.) Worsens with: Reports: Other Context: Denies: Activity (Trying to eat.), Exercise, Lifting, Sick Contact, Trauma, Other Associated Symptoms: Reports: Cough, cough w sputum, Fever/Chills, Loss of Appetite, Malaise, Nausea/Vomiting (Is febrile in the ED. Nausea vomiting all day yesterday and a bit this morning. Better since receiving Zofran in the), Shortness of Breath. Denies: Confusion, Chest Pain, Diaphoresis, Headaches, Rash, Seizure ( renal dialysis unit.), Syncope (On exertion.) Treatments CAPSULE INSPECTOR: Reports: Other (see below) (Only her normal medications she did take her blood pressure at occasions and they did stay down this morning. Her pressure at the time of presentation to the ED is 192/95. Is subsequently come down to 194/99) Bilateral Upper Back Pain Score (Numeric/FACES): 4 - Related Data Allergies Allergy/AdvReac Type Severity Reaction Status Date / Time acetaminophen Allergy Cannot Verified 03/22/19 11:12 [From Darvocet-N] Remember nitrofurantoin Allergy Cannot Verified 03/22/19 11:12 [From Macrobid] Remember nitrofurantoin Allergy Cannot Verified 03/22/19 11:12 macrocrystalline Remember [From Macrobid] propoxyphene napsylate Allergy Cannot Verified 03/22/19 11:12 [From Darvocet-N] Remember Sulfa (Sulfonamide Allergy Cannot Verified 03/22/19 11:12 Antibiotics) Remember Home Meds: Home Meds Labetalol [Normodyne] 200 mg PO TID 02/17/14 [History] Lisinopril 20 mg PO DAILY 12/01/16 [History] Sertraline [Zoloft] 100 mg PO DAILY 12/01/16 [History] Sevelamer Carbonate [Renvela] 1,600 mg PO TIDMEALS 12/01/16 [History] Calcium Acetate 667 mg PO TID 03/22/19 [History] Prazosin HCl [Prazosin] 5 mg PO BEDTIME 03/22/19 [History] amLODIPine Besylate [Amlodipine Besylate] 10 mg PO DAILY 03/22/19 [History] Past Medical History HEENT History: Reports: Impaired Vision Cardiovascular History: Reports: Heart Murmur, Hypertension Gastrointestinal History: Reports: GERD Genitourinary History: Reports: Acute Renal Failure, Dialysis, Renal Calculus 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: Psychiatric History: Reports: Addiction, Anxiety, Depression Hematologic History: Reports: Blood Transfusion(s) - Infectious Disease History Infectious Disease History: Reports: Chicken Pox - Past Surgical History HEENT Surgical History: Reports: Adenoidectomy, Myringotomy w Tube(s), Tonsillectomy Cardiovascular Surgical History: Reports: Vascular Surgery Female Surgical History: Reports: Section, Hysterectomy, Salpingo- Oophorectomy Social & Family History - Family History Family Medical History: Noncontributory Cardiac: Reports: High Cholesterol, Hypertension : Reports: Dialysis Musculoskeletal: Reports: Fibromyalgia Neurological: Reports: Cerebral Aneurysms - Tobacco Use Smoking Status *Q: Current Every Day Smoker Years of Tobacco use: 17 Packs/Tins Daily: 0.3 - Caffeine Use Caffeine Use: Reports: Coffee, Soda - Recreational Drug Use Recreational Drug Use: Yes Drug Use in Last 12 Months: Yes Recreational Drug Type: Reports: Marijuana/Hashish, Methamphetamine - Living Situation & Occupation Living situation: Reports: Single, with Family (Father) Occupation: Unemployed ED ROS GENERAL - Review of Systems Review Of Systems: See Below Constitutional: Reports: Fever, Chills (Likely has a fever she didn't think she did.), Malaise, Weakness ( Had chills on Wednesday night March 20.), Fatigue, Decreased Appetite. Denies: Weight Loss HEENT: Reports: No Symptoms Respiratory: Reports: Shortness of Breath, Wheezing, Cough, Sputum. Denies: Pleuritic Chest Pain, Hemoptysis Cardiovascular: Reports: Blood Pressure Problem, Dyspnea on Exertion, Edema. Denies: Claudication, Lightheadedness, Orthopnea Endocrine: Reports: Fatigue (Both feet.) GI/Abdominal: Reports: Abdominal Pain, Diarrhea (Some discomfort in the epigastrium from vomiting so much yesterday.), Nausea (Last vomited about 4:00 this morning.), Vomiting. Denies: Hematochezia, Stool Incontinence ( Had loose watery diarrhea yellow in color this morning without blood.) : Reports: Other ( Better now since Zofran given in the renal dialysis unit. still makes a cup of urine daily. 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 Denies: Confusion, Headache, Numbness, Paresthesia, Pre-Existing Deficit, Syncope, Tingling, Tremors, Trouble Speaking, Difficulty Walking Psychiatric: Reports: No Symptoms Hematologic/Lymphatic: Reports: Anemia (Secondary to renal failure) Immunologic: Reports: No Symptoms ED EXAM, GENERAL - Physical Exam Exam: See Below Exam Limited By: No Limitations General Appearance: Alert, WD/WN, No Apparent Distress, Other (Her pressures elevated at 192/95. O2 sats 93% on room air 99% on 1/2 L. Temperature is 37.2 heart rate 96 and sinus. Respiratory denies 19) Eye Exam: Bilateral Eye: Normal Inspection (Mild lateral pallor. No scleral icterus.) Ears: Normal TMs Throat/Mouth: Other Head: Atraumatic, Normocephalic (Throat is normal tongue is moist) Neck: Normal Inspection, Supple, Non-Tender, Full Range of Motion. No: Carotid Bruit, Lymphadenopathy (L), Lymphadenopathy (R) Respiratory/Chest: Respiratory Distress, Decreased Breath Sounds (Mild nonproductive cough. Was decreased air entry lower 50% of lung sosa bilaterally due to severe COPD.), Wheezing (Very mild tachypnea. Jad wheezes more notable in the right posterior lung field.), Other. No: Lungs Clear, Normal Breath Sounds Cardiovascular: Regular Rate, Rhythm, No Gallop, Systolic Murmur (She has a pansystolic ejection murmur best heard at the left parasternal border compatible with aortic stenosis grade 2/6. She also has a grade 1/6 systolic murmur that travels to the left axilla compatible with mitral insufficiency. Unclear if she had a diagnosis of endocarditis from intravenous drug use.). No : Normal Peripheral Pulses, No Edema Peripheral Pulses: 2+: Posterior Tibial (L), Posterior Tibial (R), Dorsalis Pedis (L), Dorsalis Pedis (R) GI/Abdominal: Normal Bowel Sounds, Soft, Non-Tender, No Organomegaly, No Abnormal Bruit, Pelvis Stable, Other (Previous total hysterectomy and BSO well- healed scar.) Back Exam: Normal Inspection, Full Range of Motion. No: CVA Tenderness (L), CVA Tenderness (R) Extremities: Normal Inspection, Normal Range of Motion, Non-Tender, Pedal Edema (1+ pitting edema at the ankles bilaterally) Neurological: Alert, Oriented, CN II-XII Intact, Normal Cognition Psychiatric: Normal Affect, Normal Mood Skin Exam: Warm, Dry, Intact, Other (Ulcerations face acneiform like an upper extremities upper back compatible with neurodermatitis. Suspect continued methamphetamine use.) EKG INTERPRETATION EKG Date: 03/22/19 Time: 14:34 Rhythm: Other (Sinus tachycardia) Rate (Beats/Min): 115 Point Roberts: Normal P-Wave: Present (P-wave is inverted in leads V1 and V2. Of unclear significance. ) QRS: Other (Initial poor R-wave progression leads V1 to V3.) ST-T: Depressed (Minimal ST segment depression leads 1 and aVL nonspecific finding) QT: Prolonged (Mildly prolonged) EKG Interpretation Comments: Abnormal ECG Course - Vital Signs Last Recorded V/S: Last Vital Signs Temp 37.2 C 03/22/19 11:08 Pulse 96 03/22/19 11:08 Resp 19 03/22/19 11:08 BP 204/94 H 03/22/19 13:55 Pulse Ox 91 L 03/22/19 12:12 - Orders/Labs/Meds Orders: Active Orders 24 hr Category Date Time Status EKG Documentation Completion [RC] STAT Care 03/22/19 14:06 Active Oxygen Therapy [RC] ASDIRECTED Care 03/22/19 14:39 Active RT Aerosol Therapy [RC] ASDIRECTED Care 03/22/19 11:50 Active CULTURE BLOOD [BC] Stat Lab 03/22/19 15:14 Received CULTURE BLOOD [BC] Stat Lab 03/22/19 15:18 Received CULTURE URINE [RM] Stat Lab 03/22/19 14:53 Ordered Levofloxacin/Dextrose 5%-Water [Levaquin in D5W 750 MG/ Med 03/22/19 15:00 Active 150 ML] 750 mg Premix Bag 1 bag IV ONETIME niCARdipine HCl [Nicardipine HCl] 25 mg Med 03/22/19 16:00 Ordered Sodium Chloride 0.9% [Normal Saline] 250 ml IV ASDIRECTED Blood Culture x2 Reflex Set [OM.PC] Stat Oth 03/22/19 14:33 Ordered Medication Orders Levofloxacin/Dextrose 750 mg/ (Premix) 150 mls @ 100 mls/hr IV ONETIME ONE Stop: 03/22/19 16:29 Last Admin: 03/22/19 15:28 Dose: 100 mls/hr Labs: Laboratory Tests 03/22/19 03/22/19 03/22/19 Range/Units 12:00 12:00 12:15 WBC 14.35 H (3.98-10.04) K/mm3 RBC 2.77 L (3.98-5.22) M/mm3 Hgb 8.5 L (11.2-15.7) gm/dl Hct 27.0 L (34.1-44.9) % MCV 97.5 H (79.4-94.8) fl MCH 30.7 (25.6-32.2) pg MCHC 31.5 L (32.2-35.5) g/dl RDW Std Deviation 45.1 (36.4-46.3) fL Plt Count 265 (182-369) K/mm3 MPV 9.8 (9.4-12.3) fl Neutrophils % (Manual) 85 H (40-60) % Band Neutrophils % 0 (0-10) % Lymphocytes % (Manual) 7 L (20-40) % Atypical Lymphs % 0 % Monocytes % (Manual) 7 (2-10) % Eosinophils % (Manual) 1 (0.7-5.8) % Basophils % (Manual) 0 L (0.1-1.2) Platelet Estimate Adequate RBC Morph Comment Normal ESR 90 H (0-20) mm/hr PT 12.2 H (9.7-12.0) SECONDS INR 1.13 APTT 35 H (22-31) SECONDS Sodium (136-145) mEq/L Potassium (3.5-5.1) mEq/L Chloride (98-107) mEq/L Carbon Dioxide (21-32) mEq/L Anion Gap (5-15) BUN (7-18) mg/dL Creatinine (0.55-1.02) mg/dL Est Cr Clr Drug Dosing mL/min Estimated GFR (MDRD) (>60) mL/min BUN/Creatinine Ratio (14-18) Glucose (74-106) mg/dL Lactic Acid (0.4-2.0) mmol/L Calcium (8.5-10.1) mg/dL Magnesium (1.8-2.4) mg/dl Total Bilirubin (0.2-1.0) mg/dL AST (15-37) U/L ALT (14-59) U/L Alkaline Phosphatase (46-116) U/L Troponin I (0.00-0.056) ng/mL C-Reactive Protein (<1.0) mg/dL NT-Pro-B Natriuret Pep (0-125) pg/mL Total Protein (6.4-8.2) g/dl Albumin (3.4-5.0) g/dl Globulin gm/dL Albumin/Globulin Ratio (1-2) Urine Color (Yellow) Urine Appearance (Clear) Urine pH (5.0-8.0) Ur Specific [place] (1.005-1.030) Urine Protein (Negative) Urine Glucose (UA) (Negative) Urine Ketones (Negative) Urine Occult Blood (Negative) Urine Nitrite (Negative) Urine Bilirubin (Negative) Urine Urobilinogen (0.2-1.0) Ur Leukocyte Esterase (Negative) Urine RBC (0-5) /hpf Urine WBC (0-5) /hpf Ur Squamous Epith Cells (0-5) /hpf Urine Bacteria (FEW) /hpf Urine Mucus (FEW) /hpf 03/22/19 03/22/19 03/22/19 Range/Units 12:15 12:15 12:15 WBC (3.98-10.04) K/mm3 RBC (3.98-5.22) M/mm3 Hgb (11.2-15.7) gm/dl Hct (34.1-44.9) % MCV (79.4-94.8) fl MCH (25.6-32.2) pg MCHC (32.2-35.5) g/dl RDW Std Deviation (36.4-46.3) fL Plt Count (182-369) K/mm3 MPV (9.4-12.3) fl Neutrophils % (Manual) (40-60) % Band Neutrophils % (0-10) % Lymphocytes % (Manual) (20-40) % Atypical Lymphs % % Monocytes % (Manual) (2-10) % Eosinophils % (Manual) (0.7-5.8) % Basophils % (Manual) (0.1-1.2) Platelet Estimate RBC Morph Comment ESR (0-20) mm/hr PT (9.7-12.0) SECONDS INR APTT (22-31) SECONDS Sodium 140 (136-145) mEq/L Potassium 3.3 L D (3.5-5.1) mEq/L Chloride 99 (98-107) mEq/L Carbon Dioxide 28 (21-32) mEq/L Anion Gap 16.3 H (5-15) BUN 8 D (7-18) mg/dL Creatinine 3.0 H D (0.55-1.02) mg/dL Est Cr Clr Drug Dosing 23.55 mL/min Estimated GFR (MDRD) 18 (>60) mL/min BUN/Creatinine Ratio 2.7 L (14-18) Glucose 92 (74-106) mg/dL Lactic Acid 0.8 (0.4-2.0) mmol/L Calcium 8.3 L (8.5-10.1) mg/dL Magnesium 1.5 L (1.8-2.4) mg/dl Total Bilirubin 0.8 (0.2-1.0) mg/dL AST 15 (15-37) U/L ALT 21 (14-59) U/L Alkaline Phosphatase 141 H (46-116) U/L Troponin I < 0.017 (0.00-0.056) ng/mL C-Reactive Protein 17.0 H* (<1.0) mg/dL NT-Pro-B Natriuret Pep > 71763 H (0-125) pg/mL Total Protein 6.6 (6.4-8.2) g/dl Albumin 2.9 L (3.4-5.0) g/dl Globulin 3.7 gm/dL Albumin/Globulin Ratio 0.8 L (1-2) Urine Color (Yellow) Urine Appearance (Clear) Urine pH (5.0-8.0) Ur Specific [place] (1.005-1.030) Urine Protein (Negative) Urine Glucose (UA) (Negative) Urine Ketones (Negative) Urine Occult Blood (Negative) Urine Nitrite (Negative) Urine Bilirubin (Negative) Urine Urobilinogen (0.2-1.0) Ur Leukocyte Esterase (Negative) Urine RBC (0-5) /hpf Urine WBC (0-5) /hpf Ur Squamous Epith Cells (0-5) /hpf Urine Bacteria (FEW) /hpf Urine Mucus (FEW) /hpf 03/22/19 Range/Units 13:35 WBC (3.98-10.04) K/mm3 RBC (3.98-5.22) M/mm3 Hgb (11.2-15.7) gm/dl Hct (34.1-44.9) % MCV (79.4-94.8) fl MCH (25.6-32.2) pg MCHC (32.2-35.5) g/dl RDW Std Deviation (36.4-46.3) fL Plt Count (182-369) K/mm3 MPV (9.4-12.3) fl Neutrophils % (Manual) (40-60) % Band Neutrophils % (0-10) % Lymphocytes % (Manual) (20-40) % Atypical Lymphs % % Monocytes % (Manual) (2-10) % Eosinophils % (Manual) (0.7-5.8) % Basophils % (Manual) (0.1-1.2) Platelet Estimate RBC Morph Comment ESR (0-20) mm/hr PT (9.7-12.0) SECONDS INR APTT (22-31) SECONDS Sodium (136-145) mEq/L Potassium (3.5-5.1) mEq/L Chloride (98-107) mEq/L Carbon Dioxide (21-32) mEq/L Anion Gap (5-15) BUN (7-18) mg/dL Creatinine (0.55-1.02) mg/dL Est Cr Clr Drug Dosing mL/min Estimated GFR (MDRD) (>60) mL/min BUN/Creatinine Ratio (14-18) Glucose (74-106) mg/dL Lactic Acid (0.4-2.0) mmol/L Calcium (8.5-10.1) mg/dL Magnesium (1.8-2.4) mg/dl Total Bilirubin (0.2-1.0) mg/dL AST (15-37) U/L ALT (14-59) U/L Alkaline Phosphatase (46-116) U/L Troponin I (0.00-0.056) ng/mL C-Reactive Protein (<1.0) mg/dL NT-Pro-B Natriuret Pep (0-125) pg/mL Total Protein (6.4-8.2) g/dl Albumin (3.4-5.0) g/dl Globulin gm/dL Albumin/Globulin Ratio (1-2) Urine Color Yellow (Yellow) Urine Appearance Clear (Clear) Urine pH 8.5 H (5.0-8.0) Ur Specific [place] 1.025 (1.005-1.030) Urine Protein 3+ H (Negative) Urine Glucose (UA) Trace H (Negative) Urine Ketones Negative (Negative) Urine Occult Blood 1+ H (Negative) Urine Nitrite Negative (Negative) Urine Bilirubin Negative (Negative) Urine Urobilinogen 0.2 (0.2-1.0) Ur Leukocyte Esterase Negative (Negative) Urine RBC 5-10 H (0-5) /hpf Urine WBC 5-10 H (0-5) /hpf Ur Squamous Epith Cells 0-5 (0-5) /hpf Urine Bacteria Moderate H (FEW) /hpf Urine Mucus Not seen (FEW) /hpf Meds: Medications Generic Name Dose Route Start Last Admin Trade Name Freq PRN Reason Stop Dose Admin Levofloxacin/Dextrose 750 mg/ 150 mls @ 100 mls/hr 03/22/19 15:00 03/22/19 15 :28 Premix IV 03/22/19 16:29 100 mls/hr ONETIME ONE Administration Discontinued Medications Generic Name Dose Route Start Last Admin Trade Name Freq PRN Reason Stop Dose Admin Albuterol/Ipratropium 3 ml 03/22/19 11:50 03/22/19 12:11 Duoneb 3.0-0.5 Mg/3 Ml NEB 03/22/19 11:51 3 ml ONETIME ONE Administration Hydralazine HCl 10 mg 03/22/19 14:51 03/22/19 15:24 Apresoline IVPUSH 03/22/19 14:52 10 mg ONETIME ONE Administration Prazosin HCl 5 mg 03/22/19 12:52 03/22/19 13:55 Minpress PO 03/22/19 12:53 5 mg ONETIME ONE Administration - Radiology Interpretation Free Text/Narrative:: 33-year-old female presents the ED for evaluation of persistent nausea and vomiting all day yesterday and up until 4:00 this morning. She still having loose watery diarrhea as well. This was. Dictated by the development of a paroxysmal slightly productive cough with fever on March 20 evening. Question is whether or not she has developed a mild case of influenza. She did have a flu shot. She is immunocompromised due to being a hemodialysis patient. She has decreased air entry to both lung sosa posteriorly due to COPD. O2 sats in the ED were 93%. She attends the ED after completing 4 hours of dialysis run this morning. Apparently the time of presentation she presented to the dialysis unit below her dry weight. She is hypertensive at 195/95. Heart rate is 105 in sinus. O2 sats 93% on room air. Not on oxygen at home. Plan she will require septic workup including a lactic acid level and a influenza screen. - Re-Assessments/Exams Free Text/Narrative Re-Assessment/Exam: 03/22/19 12:33 influenza screen is negative. X-ray reveals a moderate size left -sided pleural effusion. There is a mild infiltrate in the right lower lobe as well suggestive of fluid in the lower lobe. 03/22/19 12:59 lactic acid was 0.8. PTT was 35. INR is 1.13 and PTT is 12.2. I.e. mildly anticoagulated. 03/22/19 13:20 Sodium is 140. Potassium slightly low at 3.3. Heart is 99 with a bicarbonate 28. And a gap is 16.3. BUN is 8 with a creatinine of 3.0. GFR is 18. Creatinine is 2.7. Glucose 92 with lactic acid 0.8. Calcium 8.3 magnesium low at 1.5. The lumen is 0.8 AST is 15 ALT is 21 alkaline phosphatase days 141. Troponin I is less than 0.017. C-reactive protein is elevated at 17.0. BNP is greater than 35,000. Total protein is 6.6 with an albumin fraction of 2.9. Blood cell count is elevated at 14.35. 85% neutrophils and no band cells reported. Hemoglobin is low at 8.5 with a hematocrit of 27.0. Platelet count 265 ,000. Sedimentation rate is 90. Blood pressure remains to 05 systolic and she was given prazosin 5 mg per ora. 03/22/19 14:14 Urinalysis is back. It shows through 3+ proteinuria 1+ occult blood negative leukocyte esterase 5-10 RBCs per field and 5-10 WBCs per high- power field and moderate bacteria. A urine culture will be ordered. 03/22/19 14:35: Spoke to the on-call nurse at [facility] and did speak to Dr. Tyra Lucero land commissioner hospitalist. He is accepted care of this hemodialysis patient. She requires further investigation of fever of unknown origin although we suspect it may be a pneumonia in the left sided pleural effusion. She has a very markedly elevated sedimentation rate at 90. She will be transported to that facility per ground ambulance. Off of oxygen she dropped down to as low as 81% on room air. She has done very well on 2-3 L at rest maintain sats of 92-94%. Pressure remains elevated at 200 systolic and she was given hydralazine 10 mg IV. 03/22/19 15:54 hydralazine 10 mg IV did not lower her pressure. It is still 206/ 101. Heart rate is now up to 1 17/m as well. O2 sats are 93-94% on 3 L/m. Going to start her on a cart appearing drip at 10 mg/hr. was been finally able to get the second blood culture. Therefore paramedics have been summoned to provide transport to [place]. 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 She presents with a viral gastroenteritis picture with acute onset of nausea vomiting and diarrhea starting yesterday morning. She presented to hemodialysis unit this morning below her dry weight. Was completed as per usual. She presents here with a very low-grade fever. Emesis had been curtailed by Zofran sublingually. Evaluation revealed markedly decreased air entry to both lung sosa. Chest x-ray revealed marked cardiomegaly and a left-sided pleural effusion which is moderate in size. He was hypoxic and required oxygen at 2-3 L/m by nasal cannula to maintain O2 sats above 94%. On room air she was only 80%. Oxygen had been started in the hemodialysis unit. Patient does not use home oxygen. Lab tests further revealed a sedimentation rate of 90. An elevated white count at 14.95 with a left shift of 85% neutrophils. CRP of 17. Urinalysis suggested 5-10 process per per field urine culture done. Blood cultures 2 were eventually done when the patient seemed to be more febrile. She'll be started on Levaquin 750 mg an IV en route to [place] per ambulance. Note she has heart murmurs of unknown NT daily. Clinically she has aortic stenosis grade 2/6 in grade 1 mitral insufficiency murmur. Query endocarditis. Has a history of IV drug abuse. 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 Sepsis Event Note - Evaluation Sepsis Screening Result: Possible Sepsis Risk - Focused Exam Vital Signs: Vital Signs Temp Pulse Resp BP BP Pulse Ox Pulse Ox 03/22/19 13:55 204/94 H 03/22/19 12:12 91 L 03/22/19 11:08 37.2 C 96 19 192/95 H 93 L Date Exam was Performed: 03/22/19 Time Exam was Performed: 15:54 - My Orders Last 24 Hours: My Active Orders 03/22/19 11:50 RT Aerosol Therapy [RC] ASDIRECTED 03/22/19 14:06 EKG Documentation Completion [RC] STAT 03/22/19 14:33 Blood Culture x2 Reflex Set [OM.PC] Stat 03/22/19 14:39 Oxygen Therapy [RC] ASDIRECTED 03/22/19 14:53 CULTURE URINE [RM] Stat 03/22/19 15:00 Levofloxacin/Dextrose 5%-Water [Levaquin in D5W 750 MG/150 ML] 750 mg Premix Bag 1 bag IV ONETIME 03/22/19 15:14 CULTURE BLOOD [BC] Stat 03/22/19 15:18 CULTURE BLOOD [BC] Stat 03/22/19 16:00 niCARdipine HCl [Nicardipine HCl] 25 mg Sodium Chloride 0.9% [Normal Saline] 250 ml IV ASDIRECTED - Assessment/Plan Last 24 Hours: My Active Orders 03/22/19 11:50 RT Aerosol Therapy [RC] ASDIRECTED 03/22/19 14:06 EKG Documentation Completion [RC] STAT 03/22/19 14:33 Blood Culture x2 Reflex Set [OM.PC] Stat 03/22/19 14:39 Oxygen Therapy [RC] ASDIRECTED 03/22/19 14:53 CULTURE URINE [RM] Stat 03/22/19 15:00 Levofloxacin/Dextrose 5%-Water [Levaquin in D5W 750 MG/150 ML] 750 mg Premix Bag 1 bag IV ONETIME 03/22/19 15:14 CULTURE BLOOD [BC] Stat 03/22/19 15:18 CULTURE BLOOD [BC] Stat 03/22/19 16:00 niCARdipine HCl [Nicardipine HCl] 25 mg Sodium Chloride 0.9% [Normal Saline] 250 ml IV ASDIRECTED
--- NOTE | 2019-03-22 12:32 | CR ---
Chest: Portable view of the chest was obtained. Comparison: Prior chest x-ray of 09/05/18. Moderately large left-sided pleural effusion is seen. Heart is enlarged. Pulmonary vessels are congested. Bony structures are grossly intact. Impression: 1. Findings as noted above. Diagnostic code #3 This report was dictated in [place] Standard Time
[2019-03-22] MEDS ORDERED: Prazosin 1 MG Cap PO ONE (12:52)
[2019-03-22] MEDS ORDERED: hydrALAZINE 20 MG/ML SDV IVPUSH ONE (14:51)
[2019-03-22] MEDS ORDERED: Levofloxacin/Dextrose 5%-Water 750 MG in Premix Bag 1 BAG IV ONE (15:00)
[2019-03-22] MEDS ORDERED: niCARdipine HCl 25 MG in Sodium Chloride 0.9% 250 ML IV SCH (16:00)
[2019-03-22 17:41] VITALS: BP 205/105; PULSE 117
== END 2019-03-22 16:20 ==
LOC: JD.ED 10:59
DX: I13.2 Hypertensive heart and chronic kidney disease with heart failure and with stage 5 chronic kidney disease, or end stage renal disease (principal); N18.6 End stage renal disease; I50.9 Heart failure, unspecified; J90 Pleural effusion, not elsewhere classified; R11.2 Nausea with vomiting, unspecified; R19.7 Diarrhea, unspecified; F32.9 Major depressive disorder, single episode, unspecified; F17.210 Nicotine dependence, cigarettes, uncomplicated; Z99.2 Dependence on renal dialysis; Z88.6 Allergy status to analgesic agent; Z88.1 Allergy status to other antibiotic agents; Z88.2 Allergy status to sulfonamides; Z79.899 Other long term (current) drug therapy
CPT/HCPCS: 36415; 71045; 80053; 81001; 83605; 83735; 83880; 84484; 85007; 85027; 85610; 85652; 85730; 86140; 87040; 87086; 87804; 93005; 94640; 96365; 96368; 96375; 99285; A9270; J0360; J1956; J7050; 93010; J7620-GY

== ENCOUNTER 2019-05-22 11:06 | Emergency (ER) | payer MEDICARE, MEDICAID ==
[2019-05-22 11:17] VITALS: BP 188/90; PULSE 90
[2019-05-22] MEDS ORDERED: HYDROmorphone 0.5 MG/0.5 ML Syringe IVPUSH ONE ×2 (12:17→14:39)
[2019-05-22] MEDS ORDERED: Sodium Chloride 0.9% 10 ML Syringe FLUSH PRN ×2 (12:17→13:43)
--- NOTE | 2019-05-22 12:47 | EDM.PDOC ---
ED HPI GENERAL MEDICAL PROBLEM - General Chief Complaint: Skin Complaint Stated Complaint: [facility] SENT HER Time Seen by Provider: 05/22/19 11:56 Source of Information: Reports: Patient History Limitations: Reports: No Limitations - History of Present Illness INITIAL COMMENTS - FREE TEXT/NARRATIVE: Patient is a 33-year-old female who presents with complaints of right breast and lower shoulder blade pain that started last night. Patient also has some mild pain in her right upper leg that started this morning. Patient notes that she noticed a "ingrown hair "in her right armpit last Wednesday. This has been growing in size gradually since that time. She feels that this is the source of her pain. She had some vomiting and diarrhea yesterday, however states this is prior to the breast pain. She has had some episodes of diaphoresis and feels that she may have had a fever last night. Rates the pain to her breast an 8 out of 10. States that the pain in her right upper leg is very mild and she thinks she may have just slept wrong last night. Patient denies any history of blood clots. She is in end-stage renal failure on renal dialysis. Right Breast Pain Score (Numeric/FACES): 8 - Related Data Allergies Allergy/AdvReac Type Severity Reaction Status Date / Time acetaminophen Allergy Cannot Verified 05/22/19 11:15 [From Darvocet-N] Remember nitrofurantoin Allergy Cannot Verified 05/22/19 11:15 [From Macrobid] Remember nitrofurantoin Allergy Cannot Verified 05/22/19 11:15 macrocrystalline Remember [From Macrobid] propoxyphene napsylate Allergy Cannot Verified 05/22/19 11:15 [From Darvocet-N] Remember Sulfa (Sulfonamide Allergy Cannot Verified 05/22/19 11:15 Antibiotics) Remember Home Meds: Home Meds Labetalol [Normodyne] 200 mg PO TID 02/17/14 [History] Lisinopril 20 mg PO DAILY 12/01/16 [History] Sertraline [Zoloft] 100 mg PO DAILY 12/01/16 [History] Sevelamer Carbonate [Renvela] 1,600 mg PO TIDMEALS 12/01/16 [History] Calcium Acetate 667 mg PO TID 03/22/19 [History] Prazosin HCl [Prazosin] 5 mg PO BEDTIME 03/22/19 [History] amLODIPine Besylate [Amlodipine Besylate] 10 mg PO DAILY 03/22/19 [History] Amoxicillin 500 mg PO DAILY #9 capsule 05/22/19 [Rx] Doxycycline [Vibramycin] 100 mg PO BID 10 Days #20 tab 05/22/19 [Rx] Past Medical History HEENT History: Reports: Impaired Vision Cardiovascular History: Reports: Heart Murmur, Hypertension Gastrointestinal History: Reports: GERD Genitourinary History: Reports: Acute Renal Failure, Dialysis, Renal Calculus CLINICAL EDUCATION SPECIALIST History: Reports: Psychiatric History: Reports: Addiction, Anxiety, Depression Hematologic History: Reports: Blood Transfusion(s) - Infectious Disease History Infectious Disease History: Reports: Chicken Pox - Past Surgical History HEENT Surgical History: Reports: Adenoidectomy, Myringotomy w Tube(s), Tonsillectomy Cardiovascular Surgical History: Reports: Vascular Surgery Female Surgical History: Reports: Section, Hysterectomy, Salpingo- Oophorectomy Musculoskeletal Surgical History: Reports: Other (See Below) Social & Family History - Family History Family Medical History: Noncontributory Cardiac: Reports: High Cholesterol, Hypertension : Reports: Dialysis Musculoskeletal: Reports: Fibromyalgia Neurological: Reports: Cerebral Aneurysms - Tobacco Use Smoking Status *Q: Current Every Day Smoker Years of Tobacco use: 15 Packs/Tins Daily: 0.5 - Caffeine Use Caffeine Use: Reports: Coffee, Soda - Recreational Drug Use Recreational Drug Use: Yes Drug Use in Last 12 Months: Yes Recreational Drug Type: Reports: Marijuana/Hashish Recreational Drug Use Frequency: Daily - Living Situation & Occupation Living situation: Reports: Single, with Family (Father) Occupation: Unemployed ED ROS GENERAL - Review of Systems Review Of Systems: Comprehensive ROS is negative, except as noted in HPI. ED EXAM, SKIN/RASH Exam: See Below Exam Limited By: No Limitations General Appearance: Alert, WD/WN, Mild Distress Respiratory/Chest: No Respiratory Distress, Lungs Clear, Normal Breath Sounds, No Accessory Muscle Use, Chest Non-Tender. No: Crackles, Rhonchi, Wheezing Cardiovascular: Normal Peripheral Pulses, Regular Rate, Rhythm, No Edema, No Gallop, No JVD, No Murmur, No Rub GI/Abdominal: Normal Bowel Sounds, Soft, Non-Tender, No Organomegaly, No Distention, No Abnormal Bruit, No Mass Extremities: Normal Inspection, Normal Range of Motion, Non-Tender, No Pedal Edema, Normal Capillary Refill, Leg Pain (Mild right upper leg. No redness, warmth or edema present,), Other (scattered areas of scabbing to the upper extremities). No: Arm Pain Neurological: Alert, Oriented, CN II-XII Intact, Normal Cognition, Normal Gait, Normal Reflexes, No Motor/Sensory Deficits Psychiatric: Normal Affect, Normal Mood Skin: Warm, Dry, Normal Color Location, Skin: Axillary (Right) Characteristics: Other (3 cm erythematous nodule with a 1.5 cm erythematous nodule directly distal. Surrounding tissues are warm and erythematous. Area is tender to palpation. Tenderness radiates into the right breast.) Associated features: Warmth, Tenderness, Swelling, Induration, Inflammation. No : Crusting, Weeping Course - Vital Signs Last Recorded V/S: Last Vital Signs Temp 98.6 F 05/22/19 11:12 Pulse 90 05/22/19 18:15 Resp 22 H 05/22/19 18:15 BP 188/90 H 05/22/19 11:12 Pulse Ox 87 L 05/22/19 18:15 - Orders/Labs/Meds Orders: Active Orders 24 hr Category Date Time Status EKG Documentation Completion [RC] STAT Care 05/22/19 12:46 Active Peripheral IV Care [RC] . DIRECTED Care 05/22/19 12:17 Active CULTURE BLOOD [BC] Stat Lab 05/22/19 12:45 Received CULTURE BLOOD [] Stat Lab 05/22/19 13:15 Results Blood Culture x2 Reflex Set [OM.PC] Stat Oth 05/22/19 12:17 Ordered Peripheral IV Insertion Adult [OM.PC] Stat Oth 05/22/19 12:17 Ordered Labs: Laboratory Tests 05/22/19 05/22/19 05/22/19 Range/Units 12:45 12:45 12:45 WBC 15.57 H (3.98-10.04) K/mm3 RBC 3.07 L (3.98-5.22) M/mm3 Hgb 9.5 L (11.2-15.7) gm/dl Hct 30.7 L (34.1-44.9) % MCV 100.0 H (79.4-94.8) fl MCH 30.9 (25.6-32.2) pg MCHC 30.9 L (32.2-35.5) g/dl RDW Std Deviation 51.1 H (36.4-46.3) fL Plt Count 191 (182-369) K/mm3 MPV 9.7 (9.4-12.3) fl Neut % (Auto) 90.2 H (34.0-71.1) % Lymph % (Auto) 2.5 L (19.3-51.7) % Gladwin % (Auto) 6.7 (4.7-12.5) % Eos % (Auto) 0.3 L (0.7-5.8) Baso % (Auto) 0.1 (0.1-1.2) % Neut # (Auto) 14.05 H (1.56-6.13) K/mm3 Lymph # (Auto) 0.39 L (1.18-3.74) K/mm3 Gladwin # (Auto) 1.04 H (0.24-0.36) K/mm3 Eos # (Auto) 0.04 (0.04-0.36) K/mm3 Baso # (Auto) 0.02 (0.01-0.08) K/mm3 Manual Slide Review Abnormal smear Sodium 138 (136-145) mEq/L Potassium 4.0 (3.5-5.1) mEq/L Chloride 98 (98-107) mEq/L Carbon Dioxide 29 (21-32) mEq/L Anion Gap 15.0 (5-15) BUN 9 (7-18) mg/dL Creatinine 3.5 H (0.55-1.02) mg/dL Est Cr Clr Drug Dosing 19.37 mL/min Estimated GFR (MDRD) 15 (>60) mL/min BUN/Creatinine Ratio 2.6 L (14-18) Glucose 108 H (74-106) mg/dL Lactic Acid 0.7 (0.4-2.0) mmol/L Calcium 9.1 (8.5-10.1) mg/dL Total Bilirubin 1.0 (0.2-1.0) mg/dL AST 12 L (15-37) U/L ALT 12 L (14-59) U/L Alkaline Phosphatase 111 (46-116) U/L Troponin I < 0.017 (0.00-0.056) ng/mL C-Reactive Protein 13.8 H* (<1.0) mg/dL Total Protein 6.9 (6.4-8.2) g/dl Albumin 3.2 L (3.4-5.0) g/dl Globulin 3.7 gm/dL Albumin/Globulin Ratio 0.9 L (1-2) Meds: Medications Discontinued Medications Generic Name Dose Route Start Last Admin Trade Name Katty PRN Reason Stop Dose Admin Acetaminophen Confirm 05/22/19 16:38 05/22/19 16:42 Tylenol Administered 05/22/19 16:39 975 mg Dose Administration 975 mg .ROUTE .STK-MED ONE Acetaminophen 975 mg 05/22/19 16:41 05/22/19 16:42 Tylenol PO 05/22/19 16:42 Not Given NOW ONE Amoxicillin 500 mg 05/22/19 15:22 05/22/19 16:42 Amoxil PO 05/22/19 15:23 500 mg ONETIME ONE Administration Hydromorphone HCl 0.25 mg 05/22/19 12:17 05/22/19 13:16 Dilaudid IVPUSH 05/22/19 12:18 0.25 mg ONETIME ONE Administration Hydromorphone HCl 0.25 mg 05/22/19 14:39 05/22/19 14:45 Dilaudid IVPUSH 05/22/19 14:40 0.25 mg ONETIME ONE Administration Hydromorphone HCl Confirm 05/22/19 14:37 05/22/19 14:46 Dilaudid Administered 05/22/19 14:38 Not Given Dose 0.5 mg .ROUTE .STK-MED ONE Doxycycline Hyclate 100 mg/ 100 mls @ 100 mls/hr 05/22/19 13:32 05/22/19 15: 07 Sodium Chloride IV 05/22/19 14:31 100 mls/hr ONETIME ONE Administration Sodium Chloride 100 mls @ 75 mls/hr 05/22/19 13:45 05/22/19 13:45 Normal Saline IV 75 mls/hr ASDIRECTED RICHA Administration Iopamidol 100 ml 05/22/19 13:43 05/22/19 13:45 Isovue-370 (76%) IVPUSH 03/09/20 13:44 100 ml ONETIME ONE Administration Ondansetron HCl 4 mg 05/22/19 13:19 05/22/19 13:22 Zofran IVPUSH 05/22/19 13:20 4 mg ONETIME ONE Administration Sodium Chloride 10 ml 05/22/19 12:17 05/22/19 13:24 Saline Flush FLUSH 10 ml ASDIRECTED PRN Administration Keep Vein Open Sodium Chloride 10 ml 05/22/19 13:43 05/22/19 13:45 Saline Flush FLUSH 10 ml ONETIME PRN Administration IV FLUSH - Re-Assessments/Exams Free Text/Narrative Re-Assessment/Exam: 05/22/19 13:08 I did complete a bedside ultrasound of the right axilla to look for fluid filled abscess. There was no fluid visible indicating that an I&D would not be appropriate at this time. I have ordered a complete work-up to include a CBC, CMP, CRP, blood cultures, lactic acid, and troponin. I have also ordered an EKG. patient is in end-stage renal failure requiring chronic renal dialysis for the last 5 years. She states that she makes a small amount of urine and that she will be on lifelong dialysis. Based on this a d-dimer will likely be positive and nonspecific. Due to the patient's symptoms of right upper extremity swelling and right leg pain in addition to shortness of breath and pain in her chest wall, we will complete venous Doppler of her right upper extremity and right lower extremity, as well as a CT angio to rule out PE. Since patient is on chronic dialysis and her kidneys are nonfunctioning, the IV contrast is not of concern. I have also ordered Dilaudid 0.25 mg for pain and Zofran 4 mg IV for nausea. We will start her on IV doxycycline as I definitely feel there is a infectious component to her skin lesions. Will also treat with hemodyalisis dosing of Amoxicillin, 500mg daily. 05/22/19 17:13 CT Angio of the chest was negative for any PEs, however did show nodules within both sides of the chest. This is concerning for either metastatic disease or bronchopneumonia. She also has several slightly prominent axillary lymph nodes. There is a questionable nodular area of asymmetry within the right breast. Radiologist recommends a mammogram to further evaluate this. She also has slightly prominent right hilar lymph node, as well as numuerous collaterals within the right upper chest. There is a small left-sided pleural effusion with a mild bibasilar atelectasis vs pneumonia. Venous Doppler of the right upper extremity and right lower extremity both negative for DVTs. Patient oxygen saturation on room air was 88%. She has been on 2 L via nasal cannula since she presented to the ER and has been saturating in the low 90s. Discussed these findings with the patient and advised her that I will be contacting [facility] to discuss possible admission as she is a hemodialysis patient and cannot be admitted in [place]. Patient stated that she will not stay overnight and she definitely will not go to [facility]. She states that she wants to go home and eat. Offered to order her food and she declined. I advised her that her oxygen saturation is 88% on room air which is hypoxic and that I am not comfortable discharging her home with this. She states "I will be fine once I get home ". Her grandmother was in the room for this discussion as was Guera LINK. I discussed that I would not force her to be admitted or transferred to [facility], however I also will not discharge her home with hypoxia and likely pneumonia in addition to cellulitis. Discussed that she would have to sign out AGAINST MEDICAL ADVICE. She does have history of congestive heart failure and respiratory failure in the past. Discussed with her that it is imperative that if anything should worsen she return to the emergency department immediately. I will send a prescription for doxycycline and amoxicillin for her right axillary cellulitis, as well as to cover for possible pneumonia. Also advised that I am not comfortable prescribing narcotics for pain when she is already hypoxic. Recommend that she use Tylenol as needed for discomfort. I also emphasized the importance of her following up with her primary care provider, Dr. Kaufman based on the findings of her chest CT. 05/22/19 261 Received a phone call from Anju at renal dialysis. She went to make me aware that the patient's phosphorus was slightly high at 7.0 today. She stated that a portion of this would have been removed with her dialysis run today, however she should be sure that she is avoiding phosphorus rich foods and that she is taking her phosphorus binders. I did update the patient of this and she verbalized understanding. 05/22/19 19:20 Received a phone call from lab stating that patient's blood cultures are growing out gram-positive cocci. Called Thuy on her cell phone and spoke with her regarding these results. Recommended that she return to the emergency department for admission and IV antibiotics. She states that she is already in bed, does not have a ride to get back tonight and that she will come back tomorrow morning. Recommended that she return tonight as there is a possibility that this could worsen significantly by morning. She declined and said that she will come back in the morning. Departure - Departure Time of Disposition: 17:24 Disposition: Against Medical Advice 07 Condition: Poor Clinical Impression: Abscess, Hypoxia - Discharge Information *PRESCRIPTION DRUG MONITORING PROGRAM REVIEWED*: No *COPY OF PRESCRIPTION DRUG MONITORING REPORT IN PATIENT DEAN: No Prescriptions: Amoxicillin 500 mg PO DAILY #9 capsule Doxycycline [Vibramycin] 100 mg PO BID 10 Days #20 tab Instructions: Skin Abscess Referrals: PCP,None [Ordering Only Provider] - Forms: ED Department Discharge Additional Instructions: You were seen in the emergency department today for right breast pain as well as swelling in your right armpit. Your work-up included blood work, CT of your chest, ultrasound of your right arm and right lower extremity. As we discussed , the ultrasounds were negative for any DVTs and there was no blood clot in your lungs, however there are a number of different areas that are concerning for pneumonia and possible metastatic disease. You also have a small left- sided pleural effusion. My recommendation was for for you to be admitted as your oxygen saturation was as low as 88% on room air which is considered to be hypoxic. You refused admission and did sign out AGAINST MEDICAL ADVICE. I have sent a prescription for doxycycline and amoxicillin to treat the infection in your right axilla. This will also provide a degree of coverage for pneumonia. These medications have been sent to [facility] in [facility]. Take these as prescribed. Recommend that you follow-up in the next 2 days with your primary care provider to have this area reevaluated as there are times that this may form a fluid pocket and may benefit from drainage. We were updated by the dialysis department that your phosphorus today was 7.0 which is elevated. Ensure that you are limiting phosphorus rich foods and that you are taking your phosphorus binders as prescribed. As we discussed, with your cardiac history and history of respiratory distress, there is a great deal of risk with you going home with an oxygen saturation of 88% and likely pneumonia. If you should experience any worsening symptoms, it is imperative that you return to the emergency department immediately. Otherwise I do recommend close follow-up with your primary care provider. Sepsis Event Note - Evaluation Sepsis Screening Result: No Definite Risk - Focused Exam Vital Signs: Vital Signs Temp Pulse Resp BP Pulse Ox 05/22/19 18:15 90 22 H 87 L 05/22/19 17:15 24 H 93 L 05/22/19 16:45 22 H 94 L 05/22/19 14:30 25 H 96 05/22/19 11:12 98.6 F 90 28 H 188/90 H 90 L Date Exam was Performed: 05/22/19 Time Exam was Performed: 19:39 - My Orders Last 24 Hours: My Active Orders 05/22/19 12:17 Peripheral IV Care [RC] . DIRECTED Blood Culture x2 Reflex Set [OM.PC] Stat Peripheral IV Insertion Adult [OM.PC] Stat 05/22/19 12:45 CULTURE BLOOD [BC] Stat 05/22/19 12:46 EKG Documentation Completion [RC] STAT 05/22/19 13:15 CULTURE BLOOD [BC] Stat - Assessment/Plan Last 24 Hours: My Active Orders 05/22/19 12:17 Peripheral IV Care [RC] . DIRECTED Blood Culture x2 Reflex Set [OM.PC] Stat Peripheral IV Insertion Adult [OM.PC] Stat 05/22/19 12:45 CULTURE BLOOD [BC] Stat 05/22/19 12:46 EKG Documentation Completion [RC] STAT 05/22/19 13:15 CULTURE BLOOD [BC] Stat
[2019-05-22] MEDS ORDERED: Ondansetron 4 MG/2 ML SDV IVPUSH ONE (13:19)
[2019-05-22] MEDS ORDERED: Doxycycline 100 MG in Sodium Chloride 0.9% 100 ML IV ONE (13:32)
[2019-05-22] MEDS ORDERED: Iopamidol 755 Mg/ML 100 ML Bottle IVPUSH ONE (13:43)
[2019-05-22] MEDS ORDERED: Sodium Chloride 0.9% 100 ML IV SCH (13:45)
--- NOTE | 2019-05-22 14:28 | CT ---
CT chest Technique: Multiple axial sections were obtained from above the lung apices inferiorly through the lung bases. Intravenous contrast was utilized. Study performed as a pulmonary angiogram protocol. Comparison: Prior CT chest of 09/05/18. Findings: Pulmonary arteries are moderately well opacified. No filling defects are seen within the main or segmental branches to indicate pulmonary embolism. Smaller distal subsegmental pulmonary emboli could be missed. Nodular densities are seen on both sides of the chest more numerous on the right side. Largest nodule measures about 1.5 cm. Uncertain if these are due to areas of bronchopneumonia or whether findings could represent metastatic disease. Small left-sided pleural effusion is noted with bibasilar areas of atelectasis or pneumonia. Numerous collaterals are seen on the right side within the upper right chest. Questionable nodular area of asymmetry within the right breast. This measures 2.5 cm in size. Several slightly prominent right axillary and left axillary lymph nodes are seen. Mildly prominent right hilar lymph node is seen. Other lymph nodes within the mediastinum are felt to be within normal limits. Bone window settings were reviewed which show mild degenerative change scattered within the spine. Impression: 1. Nodules within both sides of the chest. As mentioned above, uncertain if this is due to metastatic disease or changes of bronchopneumonia. 2. Several slightly prominent axillary lymph nodes are seen. 3. Questionable nodular area of asymmetry within the right breast. Recommend mammogram to further evaluate. 4. Slightly prominent right hilar lymph node is seen. 5. No findings of pulmonary embolism within the main or segmental branches. Smaller distal subsegmental pulmonary emboli could be missed. 6. Numerous collaterals within the upper right chest. 7. Small left-sided pleural effusion with mild bibasilar atelectasis or pneumonia. Note: Recommend short-term follow-up chest CT in 3 months to further evaluate the adenopathy and lung nodules. Diagnostic code #9 This report was dictated in [place] Standard Time
[2019-05-22] MEDS ORDERED: HYDROmorphone 0.5 MG/0.5 ML Syringe ONE (14:37)
--- NOTE | 2019-05-22 14:41 | US ---
Right upper extremity venous ultrasound: Duplex and color Doppler evaluation was obtained of the right internal jugular, subclavian, axillary, brachial, basilic, radial and ulnar veins. Left jugular vein was also evaluated. Normal compression is seen is seen within the right upper extremity. Phasic flow and augmentation cannot be seen within the radial and ulnar veins due to their small size. Other vein show normal phasic flow, augmentation and compression. Right axillary region is edematous. Impression: 1. Edematous right axillary region raising the possibility of cellulitis. Please correlate. 2. No venous thrombosis is seen with the right upper extremity or left jugular vein. Diagnostic code #3 This report was dictated in [place] Standard Time
--- NOTE | 2019-05-22 14:41 | US ---
Right lower extremity deep venous ultrasound: Duplex and color Doppler evaluation was obtained of the right common femoral, proximal greater saphenous, superficial femoral, popliteal, posterior tibial and peroneal veins. Left common femoral vein was also evaluated. Comparison: No prior right lower extremity deep venous ultrasound. Findings: Normal phasic flow, augmentation and compression are seen. Impression: 1. No evidence of deep venous thrombosis within the right lower extremity or within the left common femoral vein. Diagnostic code #1 This report was dictated in [place] Standard Time
[2019-05-22] MEDS ORDERED: Amoxicillin 500 MG Cap PO ONE (15:22)
[2019-05-22] MEDS ORDERED: Acetaminophen 325 MG Tab ONE (16:38)
[2019-05-22] MEDS ORDERED: Acetaminophen 325 MG Tab PO ONE (16:41)
== END 2019-05-22 18:22 | disposition left against medical advice (07) ==
LOC: JD.ED 11:06
DX: L02.411 Cutaneous abscess of right axilla (principal); R09.02 Hypoxemia; I12.0 Hypertensive chronic kidney disease with stage 5 chronic kidney disease or end stage renal disease; N18.6 End stage renal disease; F41.9 Anxiety disorder, unspecified; Z99.2 Dependence on renal dialysis; F32.9 Major depressive disorder, single episode, unspecified; F17.210 Nicotine dependence, cigarettes, uncomplicated; Z79.899 Other long term (current) drug therapy; Z88.2 Allergy status to sulfonamides
CPT/HCPCS: 36415; 71275; 80053; 83605; 84484; 85025; 86140; 87040; 87077; 87186; 93005; 93971; 96361; 96365; 96375; 96376; 99285; A9270; J1170; J2405; J3490; J7050; Q9967; 93010; 99284

== ENCOUNTER 2019-05-24 11:09 | Emergency (ER) | payer MEDICARE, MEDICAID ==
[2019-05-24 12:18] VITALS: BP 182/84; PULSE 88
[2019-05-24] MEDS ORDERED: Sodium Chloride 0.9% 10 ML Syringe FLUSH PRN (12:38)
[2019-05-24] MEDS ORDERED: Doxycycline 100 MG in Sodium Chloride 0.9% 100 ML IV ONE (12:39)
--- NOTE | 2019-05-24 12:45 | EDM.PDOC ---
ED HPI GENERAL MEDICAL PROBLEM - General Chief Complaint: General Stated Complaint: SENT BY [facility] FOR ANTIBIOTICS Time Seen by Provider: 05/24/19 12:31 Source of Information: Reports: Patient, Old Records History Limitations: Reports: No Limitations - History of Present Illness INITIAL COMMENTS - FREE TEXT/NARRATIVE: Patient is a 33-year-old female who presents to the ED for the need of some IV antibiotics. Patient was most recently worked up in this ER on Wednesday, for right arm/breast pain. She was found to have a cellulitis type abscess in her right axilla. There is no fluctuance however so was not able to be drained at that time. She had a full septic work-up and was found to have staph aureus growing in her second culture bottle. She was called and made aware of the seriousness of her issues, and refused to come to the ER yesterday for IV antibiotics. Stated that she would come today after dialysis for some IV antibiotics. She states that she did not have a ride to the ER yesterday otherwise she would have came yesterday. She did fill her other antibiotics and has been taking them as prescribed, and states that the pain/redness/ swelling has seem to go down a bit. She still does have the lump in her right axilla, but again states that it is getting better. She is not complaining of any fever, or other feelings of being unwell. She does note that the redness has stopped spreading. Patient's primary care provider is Dr. Marie. Patient is on dialysis for end-stage renal failure. Right Axillary Pain Score (Numeric/FACES): 7 Right Leg Pain Score (Numeric/FACES): 5 - Related Data Allergies Allergy/AdvReac Type Severity Reaction Status Date / Time acetaminophen Allergy Severe Cannot Verified 05/24/19 12:18 [From Darvocet-N] Remember nitrofurantoin Allergy Severe Cannot Verified 05/24/19 12:18 [From Macrobid] Remember nitrofurantoin Allergy Severe Cannot Verified 05/24/19 12:18 macrocrystalline Remember [From Macrobid] propoxyphene napsylate Allergy Severe Cannot Verified 05/24/19 12:18 [From Darvocet-N] Remember Sulfa (Sulfonamide Allergy Severe Cannot Verified 05/24/19 12:18 Antibiotics) Remember Home Meds: Home Meds Labetalol [Normodyne] 200 mg PO TID 02/17/14 [History] Lisinopril 20 mg PO DAILY 12/01/16 [History] Sertraline [Zoloft] 100 mg PO DAILY 12/01/16 [History] Sevelamer Carbonate [Renvela] 1,600 mg PO TIDMEALS 12/01/16 [History] Calcium Acetate 667 mg PO TID 03/22/19 [History] Prazosin HCl [Prazosin] 5 mg PO BEDTIME 03/22/19 [History] amLODIPine Besylate [Amlodipine Besylate] 10 mg PO DAILY 03/22/19 [History] Amoxicillin 500 mg PO DAILY #9 capsule 05/22/19 [Rx] Doxycycline [Vibramycin] 100 mg PO BID 10 Days #20 tab 05/22/19 [Rx] Past Medical History HEENT History: Reports: Impaired Vision Cardiovascular History: Reports: Heart Murmur, Hypertension Gastrointestinal History: Reports: GERD Genitourinary History: Reports: Acute Renal Failure, Dialysis, Renal Calculus [employer]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: Psychiatric History: Reports: Addiction, Anxiety, Depression Hematologic History: Reports: Blood Transfusion(s) - Infectious Disease History Infectious Disease History: Reports: Chicken Pox - Past Surgical History HEENT Surgical History: Reports: Adenoidectomy, Myringotomy w Tube(s), Tonsillectomy Cardiovascular Surgical History: Reports: Vascular Surgery Female Surgical History: Reports: Section, Hysterectomy, Salpingo- Oophorectomy Social & Family History - Family History Family Medical History: Noncontributory Cardiac: Reports: High Cholesterol, Hypertension : Reports: Dialysis Musculoskeletal: Reports: Fibromyalgia Neurological: Reports: Cerebral Aneurysms - Tobacco Use Smoking Status *Q: Current Every Day Smoker Years of Tobacco use: 15 Packs/Tins Daily: 0.4 Used Tobacco, but Quit: No - Caffeine Use Caffeine Use: Reports: Coffee, Soda - Recreational Drug Use Recreational Drug Use: Yes Drug Use in Last 12 Months: Yes Recreational Drug Type: Reports: Methamphetamine, Other (see below) Other Recreational Drug Type: "pills". Pt reports that she has [facility] medical card for marijuana and last used 05-23-2019 - Living Situation & Occupation Living situation: Reports: Single, with Family (Father) Occupation: Unemployed ED ROS GENERAL - Review of Systems Review Of Systems: See Below Constitutional: Denies: Fever, Chills Respiratory: Denies: Shortness of Breath, Cough Cardiovascular: Denies: Chest Pain GI/Abdominal: Denies: Abdominal Pain : Denies: Discharge, Dysuria, Frequency, Urgency Skin: Reports: Erythema (by lump under R axilla), Lumps (SEE HPI) Neurological: Denies: Numbness, Tingling ED EXAM, GENERAL - Physical Exam Exam: See Below Exam Limited By: No Limitations General Appearance: Alert, WD/WN, No Apparent Distress Eye Exam: Bilateral Eye: EOMI, Normal Inspection, PERRL Throat/Mouth: Normal Inspection, Normal Lips, Normal Teeth, Normal Gums, Normal Oropharynx, Normal Voice, No Airway Compromise Head: Atraumatic, Normocephalic Neck: Normal Inspection Respiratory/Chest: No Respiratory Distress, Lungs Clear, Normal Breath Sounds, No Accessory Muscle Use, Chest Non-Tender Cardiovascular: Normal Peripheral Pulses, Regular Rate, Rhythm, No Murmur GI/Abdominal: Normal Bowel Sounds, Soft, Non-Tender, No Distention, No Mass Extremities: Normal Inspection, Normal Capillary Refill Neurological: Alert, Oriented, Normal Cognition, No Motor/Sensory Deficits Psychiatric: Normal Affect, Normal Mood Skin Exam: Warm, Dry, Intact, Erythema (on R axilla, area is roughly 3cm x 2cm erythema seems to be lessening, and the patient states that it is less than wednesday, also the area is less tender, no fluctuance noted.) Course - Vital Signs Last Recorded V/S: Last Vital Signs Temp 98.2 F 05/24/19 12:14 Pulse 88 05/24/19 12:14 Resp 16 05/24/19 12:14 BP 182/84 H 05/24/19 12:14 Pulse Ox 94 L 05/24/19 12:14 - Orders/Labs/Meds Orders: Active Orders 24 hr Category Date Time Status Peripheral IV Care [RC] . DIRECTED Care 05/24/19 12:38 Active Peripheral IV Insertion Adult [OM.PC] Routine Oth 05/24/19 12:38 Ordered Meds: Medications Discontinued Medications Generic Name Dose Route Start Last Admin Trade Name Freq PRN Reason Stop Dose Admin Doxycycline Hyclate 100 mg/ 100 mls @ 100 mls/hr 05/24/19 12:39 05/24/19 13: 07 Sodium Chloride IV 05/24/19 13:38 100 mls/hr ONETIME ONE Administration Sodium Chloride 10 ml 05/24/19 12:38 05/24/19 13:40 Saline Flush FLUSH 10 ml ASDIRECTED PRN Administration Keep Vein Open - Re-Assessments/Exams Free Text/Narrative Re-Assessment/Exam: 05/24/19 12:47 Patient presents to the ED for some IV antibiotics after her dialysis. The area in question does seem to be getting a little bit better. The erythema seems to be lessening. Patient does correlate this. I did explain to her the severity of her illness that we found on Wednesday, she seems quite unconcerned. States she is feeling much better, there is less pain in the area and is denying any other sort of laboratory work-up evaluation or further things to be done. She states she would like the IV antibiotics and to go home. Clinically I did not evaluate her on Wednesday, so I cannot attest as to how she was feeling or what she looked like, but she does appear to be vitally stable other than mildly high blood pressure. I will have an IV be placed to give her 100 mg IV doxycycline and likely discharge her home with general recommendations and to keep taking the other oral antibiotics and follow-up with Dr. Marie as needed and return to the ER if things are worsening. 05/24/19 14:05 Most finished, the patient is not complaining of any other further symptoms. Patient will be discharged home with general recommendations at this time. Departure - Departure Time of Disposition: 14:05 Disposition: Home, Self-Care 01 Condition: Fair Clinical Impression: Cellulitis of axilla, right - Discharge Information *PRESCRIPTION DRUG MONITORING PROGRAM REVIEWED*: No *COPY OF PRESCRIPTION DRUG MONITORING REPORT IN PATIENT DEAN: No Instructions: Cellulitis, Adult, [id number] Referrals: Aidan Marie MD [Primary Care Provider] - Forms: ED Department Discharge Additional Instructions: You were evaluated in the ER today regarding your need for IV antibiotics. You were given a dose of IV doxycycline for continuation of your antibiotic need. Please continue your outpatient antibiotics, the oral doxycycline and oral amoxicillin as previously prescribed. You may take Tylenol 500 mg, every 6 hours for further pain relief. Please also try to apply warm packs to the area to help bring the infection to the surface. Please continue take all your other medications as previously prescribed as well. Recommend you follow-up with your primary care provider, sometime by this late next week or early next week for reevaluation of your symptoms and make sure everything is getting better as expected. Please return to the ER at any time however if your symptoms change or worsen. Sepsis Event Note - Evaluation Sepsis Screening Result: No Definite Risk - Focused Exam Vital Signs: Vital Signs Temp Pulse Resp BP Pulse Ox 05/24/19 12:14 98.2 F 88 16 182/84 H 94 L Date Exam was Performed: 05/24/19 Time Exam was Performed: 21:43 - My Orders Last 24 Hours: My Active Orders 05/24/19 12:38 Peripheral IV Care [RC] . DIRECTED Peripheral IV Insertion Adult [OM.PC] Routine - Assessment/Plan Last 24 Hours: My Active Orders 05/24/19 12:38 Peripheral IV Care [RC] . DIRECTED Peripheral IV Insertion Adult [OM.PC] Routine
== END 2019-05-24 14:24 | disposition home or self-care (01) ==
LOC: JD.ED 11:09
DX: L03.111 Cellulitis of right axilla (principal); K21.9 Gastro-esophageal reflux disease without esophagitis; F41.9 Anxiety disorder, unspecified; F32.9 Major depressive disorder, single episode, unspecified; F17.210 Nicotine dependence, cigarettes, uncomplicated; Z88.8 Allergy status to other drugs, medicaments and biological substances; Z88.2 Allergy status to sulfonamides; Z79.899 Other long term (current) drug therapy
CPT/HCPCS: 96365; 99283; J3490; J7050

== ENCOUNTER 2019-08-20 00:11 | Emergency (ER) | payer MEDICARE, MEDICAID ==
[2019-08-20 00:32] VITALS: BP 194/101; PULSE 91
--- NOTE | 2019-08-20 01:10 | EDM.PDOC ---
ED HPI GENERAL MEDICAL PROBLEM - General Chief Complaint: General Time Seen by Provider: 08/20/19 00:47 Source of Information: Reports: Patient, Other (Friend) History Limitations: Reports: No Limitations - History of Present Illness INITIAL COMMENTS - FREE TEXT/NARRATIVE: Ms. Betancourt is a pleasant 33-year-old woman with a past medical history significant for end-stage renal disease, on hemodialysis every Wednesday, Wednesday , and Wednesday, who now presents to the ED stating that she developed a boil to her left axilla this past , 08/17/2019, which became painful yesterday, 08/19/2019. No recent fever. She states that she has been treating the boil with warm compresses and a triple antibiotic ointment. She states that she was able to express some clear, nonpurulent fluid when she squeezed it around 23:30 tonight. The patient denies any left axillary or left upper extremity injury. While she has a history of methamphetamine addiction, she states that she only smoked methamphetamine, most recently in 2018, and that she never injected it. Here in the ED, the patient's initial BP is found to be elevated at 194/101, otherwise, she is hemodynamically stable, afebrile, saturating 100% on room air. Other than the left axillary lesion, the patient denies recent fever, chills, sore throat, ear pain, nasal or sinus congestion, cough, dyspnea, chest pain, palpitations, nausea, vomiting, constipation, diarrhea, abdominal pain, urinary symptoms, recent weight gain or weight loss, recent bloody bowel movements or black bowel movements, recent joint aches, headaches, or rashes. The patient states that she had a similar lesion in her right axilla about 6 months ago, that she was treated with oral antibiotics, and then eventually popped the lesion on her own. Medical records finds that the patient was seen in this ED on 05/22/2019 and 2023 a right axilla abscess. She was treated with oral doxycycline and amoxicillin. No fluctuance was found, therefore no I & D was performed, and therefore no wound cultures were obtained, however, blood cultures were obtained on 05/22/2019, one of which grew out MRSA. The patient's PCP is Dr. Aidan Marie. She does not have a Imaging Specialist; she states that Dr. Marie orders her dialysis. Left Axillary Pain Score (Numeric/FACES): 10 - Related Data Allergies Allergy/AdvReac Type Severity Reaction Status Date / Time acetaminophen Allergy Severe Cannot Verified 08/20/19 00:32 [From Darvocet-N] Remember nitrofurantoin Allergy Severe Cannot Verified 08/20/19 00:32 [From Macrobid] Remember nitrofurantoin Allergy Severe Cannot Verified 08/20/19 00:32 macrocrystalline Remember [From Macrobid] propoxyphene napsylate Allergy Severe Cannot Verified 08/20/19 00:32 [From Darvocet-N] Remember Sulfa (Sulfonamide Allergy Severe Cannot Verified 08/20/19 00:32 Antibiotics) Remember Home Meds: Home Meds Labetalol [Normodyne] 200 mg PO TID 02/17/14 [History] Lisinopril 40 mg PO DAILY 12/01/16 [History] Sertraline [Zoloft] 100 mg PO DAILY 12/01/16 [History] Sevelamer Carbonate [Renvela] 1,600 mg PO TIDMEALS 12/01/16 [History] Calcium Acetate 667 mg PO TID 03/22/19 [History] Prazosin HCl [Prazosin] 5 mg PO BEDTIME 03/22/19 [History] amLODIPine Besylate [Amlodipine Besylate] 10 mg PO DAILY 03/22/19 [History] Doxycycline [Vibra-Tabs] 1 tab PO Q12HR #20 tab 08/20/19 [Rx] Past Medical History HEENT History: Reports: Impaired Vision Cardiovascular History: Reports: Hypertension Gastrointestinal History: Reports: GERD Genitourinary History: Reports: Dialysis (Q M,W,F), Renal Calculus Psychiatric History: Reports: Addiction (methamphetamine), Anxiety, Depression Hematologic History: Reports: Blood Transfusion(s) - Infectious Disease History Infectious Disease History: Reports: Chicken Pox, MRSA - Past Surgical History HEENT Surgical History: Reports: Adenoidectomy, Myringotomy w Tube(s) (bilateral ), Tonsillectomy Cardiovascular Surgical History: Reports: Vascular Surgery (LUE AVF), Other ( See Below) (Pericardial window) Female Surgical History: Reports: Section (x 1), Hysterectomy ( complete) Musculoskeletal Surgical History: Reports: Other (See Below) (Right thumb trigger finger release) Social & Family History - Family History Family Medical History: Noncontributory Cardiac: Reports: High Cholesterol, Hypertension : Reports: Dialysis Musculoskeletal: Reports: Fibromyalgia Neurological: Reports: Cerebral Aneurysms - Tobacco Use Smoking Status *Q: Current Every Day Smoker Years of Tobacco use: 18 Packs/Tins Daily: 0.5 Packs/Tins Daily Comment: Down from 1.5 ppd - Caffeine Use Caffeine Use: Reports: Coffee, Soda - Alcohol Use Alcohol Use History: No - Recreational Drug Use Recreational Drug Use: Yes Drug Use in Last 12 Months: Yes Recreational Drug Type: Reports: Marijuana/Hashish (smoked 2x/day), Methamphetamine (last smoked 2018) - Living Situation & Occupation Living situation: Reports: Single, with Family (Father) Occupation: Unemployed ED ROS GENERAL - Review of Systems Review Of Systems: Comprehensive ROS is negative, except as noted in HPI. ED EXAM, GENERAL - Physical Exam Exam: See Below Exam Limited By: No Limitations General Appearance: Alert, WD/WN, No Apparent Distress Extremities: Other (There is an approximately 6 cm x 4 cm area of induration to the patient's left axilla, within which is an area approximately 4.5 cm x 2.5 cm of erythema. In the center of the erythema is a flat yellow marshall measuring a few millimeters across. There is no fluctuance to the lesion. No drainage from the lesion when gently squeezed.) Course - Vital Signs Last Recorded V/S: Last Vital Signs Temp 36.8 C 08/20/19 00:20 Pulse 91 08/20/19 00:20 Resp 16 08/20/19 00:20 BP 194/101 H 08/20/19 00:20 Pulse Ox 100 08/20/19 00:20 - Orders/Labs/Meds Meds: Medications Discontinued Medications Generic Name Dose Route Start Last Admin Trade Name Freq PRN Reason Stop Dose Admin Doxycycline Hyclate 100 mg 08/20/19 01:23 08/20/19 01:28 Vibramycin PO 08/20/19 01:24 100 mg ONETIME STA Administration - Re-Assessments/Exams Free Text/Narrative Re-Assessment/Exam: 08/20/19 01:09 The patient appears to have an abscess to her left axilla, however, while it has a yellow center, it is completely indurated with no fluctuance, therefore an attempt at an I & D at this time is premature. The patient will need to be treated with antibiotics for about a week or so, until the infection consolidates into a fluid pocket that can then be incised and drained. 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 I will recommend that she apply warm compresses, however, I am advising against a topical antibiotic ointment, since that serves no purpose, and will only cause her to have a local rash. She will need to follow-up with her PCP, Dr. Marie, as early as tomorrow, for close observation. He can then I & D the lesion himself, once ready, or refer her to a surgeon if he prefers. Departure - Departure Time of Disposition: :22 Disposition: Home, Self-Care 01 Condition: Good Clinical Impression: Abscess of left axilla - Discharge Information *PRESCRIPTION DRUG MONITORING PROGRAM REVIEWED*: Not Applicable *COPY OF PRESCRIPTION DRUG MONITORING REPORT IN PATIENT DEAN: Not Applicable Prescriptions: Doxycycline [Vibra-Tabs] 1 tab PO Q12HR #20 tab Instructions: Skin Abscess, [id number] Referrals: Aidan Marie MD [Primary Care Provider] - Forms: ED Department Discharge Additional Instructions: You were seen in the emergency room for a painful swelling in your left armpit. Based on your history and physical examination, you have an abscess. At this time, the abscess has not consolidated the infection enough to be drained. Treatment with antibiotics and warm compresses will help to prevent the spread of the infection, and help the body to consolidat it into a pus pocket which can then be later drained. A blood culture from 05/22/2019 grew MRSA, indicating that you are colonized with MRSA. You have been started on the antibiotic doxycycline, and a prescription for doxycycline has been sent to the [facility], located just south and across the [address] from [facility]. The pharmacy will be open between noon and 4:00 this afternoon. Take 1 tablet of doxycycline every 12 hours, starting this evening, 08/20/2019, as prescribed. Finish the entire prescription unless told otherwise by a doctor. In addition, we recommend that you apply a warm compress to your left armpit for 10 to 15 minutes, 5 times a day. As discussed, we recommend that you NOT apply an antibiotic ointment to the armpit lesion. You may take [id number] ibuprofen, 2 to 3 tablets (400-600 mg) every 8 hours, with food, as needed for discomfort. Follow-up with your PCP, Dr. Aidan Marie, at the next available appointment. He will need to keep a close eye on this abscess and determine when it should be lanced. If any other problems, please do not hesitate to return to the ER. Sepsis Event Note - Evaluation Sepsis Screening Result: No Definite Risk - Focused Exam Vital Signs: Vital Signs Temp Pulse Resp BP Pulse Ox 08/20/19 00:20 36.8 C 91 16 194/101 H 100 Date Exam was Performed: 08/20/19 Time Exam was Performed: 01:53
[2019-08-20] MEDS ORDERED: Doxycycline 100 MG Cap PO STA (01:23)
== END 2019-08-20 01:40 | disposition home or self-care (01) ==
LOC: JD.ED 00:11
DX: L02.412 Cutaneous abscess of left axilla (principal); I10 Essential (primary) hypertension; F41.9 Anxiety disorder, unspecified; F32.9 Major depressive disorder, single episode, unspecified; F17.210 Nicotine dependence, cigarettes, uncomplicated; Z88.6 Allergy status to analgesic agent; Z88.1 Allergy status to other antibiotic agents; Z88.2 Allergy status to sulfonamides; Z79.899 Other long term (current) drug therapy
CPT/HCPCS: 99282; A9270; 99283

== ENCOUNTER 2021-10-28 09:07 | Emergency (ER) | payer MEDICARE, MEDICAID ==
[2021-10-28] MEDS ORDERED: Sodium Chloride 0.9% 10 ML Syringe FLUSH PRN (09:46)
[2021-10-28] MEDS ORDERED: methylPREDNISolone Sodium Succinate 125 MG/2 ML SDV IVPUSH ONE (09:47)
[2021-10-28] MEDS ORDERED: Albuterol/Ipratropium 3.0-0.5 MG/3 ML Neb Soln NEB ONE (09:47)
[2021-10-28 09:48] VITALS: BP 192/91; PULSE 80
[2021-10-28 10:24] LABS: ESTIMATED GFR 9 mL/min (>60)
== END 2021-10-28 11:01 | disposition home or self-care (01) ==
LOC: JD.ED 09:07
DX: J18.9 Pneumonia, unspecified organism (principal); I12.0 Hypertensive chronic kidney disease with stage 5 chronic kidney disease or end stage renal disease; N18.6 End stage renal disease; K21.9 Gastro-esophageal reflux disease without esophagitis; Z99.2 Dependence on renal dialysis; Z88.8 Allergy status to other drugs, medicaments and biological substances; Z88.1 Allergy status to other antibiotic agents; Z79.899 Other long term (current) drug therapy; Z20.822 Contact with and (suspected) exposure to COVID-19
CPT/HCPCS: 36415; 71045; 80053; 85025; 94640; 96374; 99285; J2930; J3490; U0002; 99284; J7620-GY

== ENCOUNTER 2021-11-11 12:06 | Emergency (ER) | payer MEDICARE, MEDICAID ==
[2021-11-11 12:31] VITALS: BP 188/91; PULSE 118
[2021-11-11] MEDS ORDERED: Sodium Chloride 0.9% 10 ML Syringe FLUSH PRN (12:44)
[2021-11-11] MEDS ORDERED: Albuterol/Ipratropium 3.0-0.5 MG/3 ML Neb Soln NEB ONE (12:45)
[2021-11-11] MEDS ORDERED: Furosemide 40 MG/4 ML VIAL IVPUSH ONE (13:46)
[2021-11-11 13:57] LABS: ESTIMATED GFR 9 mL/min (>60)
[2021-11-11] MEDS ORDERED: Furosemide 80 MG Tab PO ONE (15:15)
[2021-11-11] MEDS ORDERED: cefTRIAXone 1 GM in Sodium Chloride 0.9% 100 ML IV ONE (15:40)
[2021-11-11] MEDS ORDERED: HYDROmorphone 1 MG/ML Syringe IVPUSH ONE (17:33)
== END 2021-11-11 18:55 | disposition home or self-care (01) ==
LOC: JD.ED 12:06
DX: I11.0 Hypertensive heart disease with heart failure (principal); I50.9 Heart failure, unspecified; J18.9 Pneumonia, unspecified organism; Z88.6 Allergy status to analgesic agent; Z88.8 Allergy status to other drugs, medicaments and biological substances; Z88.2 Allergy status to sulfonamides; Z79.899 Other long term (current) drug therapy; Z90.710 Acquired absence of both cervix and uterus; Z20.822 Contact with and (suspected) exposure to COVID-19
CPT/HCPCS: 36415; 36600; 71045; 71250; 80053; 82803; 83605; 84484; 85025; 86140; 87040; 93005; 94640; 94660; 96365; 96375; 99285; J0696; J1170; J1940; J3490; U0002; 36410; 76937; J7620-GY

== ENCOUNTER 2022-02-05 05:26 | Emergency (ER) | payer MEDICARE, MEDICAID ==
[2022-02-05 05:39] VITALS: PULSE 90
[2022-02-05] MEDS ORDERED: Morphine 4 MG/ML Syringe IVPUSH ONE (05:43)
[2022-02-05] MEDS ORDERED: Furosemide 40 MG/4 ML VIAL IVPUSH ONE (05:49)
[2022-02-05] MEDS ORDERED: Nitroglycerin 0.4 MG Tab.SL SL ONE (06:15)
[2022-02-05] MEDS ORDERED: Nitroglycerin 0.4 MG Tab.SL ONE (06:16)
[2022-02-05] MEDS ORDERED: Nitroglycerin/D5W 25 MG/250 ML BOTTLE IV SCH (06:30)
[2022-02-05 07:01] LABS: CORONAVIRUS COVID-19 NAA NEGATIVE (NEGATIVE)
[2022-02-05 07:38] VITALS: BP 167/91
== END 2022-02-05 07:37 ==
LOC: JD.ED 05:26
DX: J81.0 Acute pulmonary edema (principal); Z88.6 Allergy status to analgesic agent; Z88.8 Allergy status to other drugs, medicaments and biological substances; Z88.2 Allergy status to sulfonamides; Z90.710 Acquired absence of both cervix and uterus; Z20.822 Contact with and (suspected) exposure to COVID-19
CPT/HCPCS: 0241U; 36415; 36600; 71045; 82803; 85025; 94660; 96365; 96375; 99285; A9270; J1940; J2270; J3490